=== PATIENT | female | born 1960 | race Caucasian/White ===

== ENCOUNTER → 2020-09-15 09:52 | Outpatient (REF) | payer MEDICAID, SELFPAY ==
--- NOTE | 2020-09-15 10:00 | ECG_ITS ---
Test Reason : CP Blood Pressure : / mmHG Vent. Rate : 062 BPM Atrial Rate : 062 BPM P-R Int : 150 ms QRS Dur : 086 ms QT Int : 402 ms P-R-T Axes : 029 032 035 degrees QTc Int : 408 ms Normal sinus rhythm Normal ECG No previous ECGs available Referred By: Agapito Crane Electronically Signed By:NIC RHODES MD
--- NOTE | 2020-09-15 10:38 | XR_ITS ---
EXAMINATION: XR CHEST CLINICAL INFORMATION: Atypical chest pain COMPARISON: Previous chest x-ray December 2013 TECHNIQUE: 2 views of the chest were obtained. FINDINGS: The cardiac and mediastinal contours are normal. The lungs are clear. There is no pleural effusion or pneumothorax. There are degenerative changes of the spine. XR/XR chest 2V IMPRESSION: No evidence for acute disease in the chest.
== END ==
LOC: HO.CARD 09:52
PROVIDERS: PCP Internal Medicine Medical Oncology; Visit Provider Internal Medicine Medical Oncology
DX: R07.89 Other chest pain (principal)
CPT/HCPCS: 71046; 93005

== ENCOUNTER → 2020-10-04 08:12 | Outpatient (REF) | payer MEDICAID, SELFPAY ==
--- NOTE | 2020-10-04 08:30 | CA_ITS ---
Acquisition Time: 2020-10-04 08:35:07 Total Exercise Time: 00:06:57 Test Indications: Chest Pain Medications: Protocol: LEÓN Max HR: 144 BPM 88% of Pred: 162 BPM Max BP: 188/074 mmHG Max Work Load: 8.4 METS Exercise stress test with exercise 6 min 57 sec of León protocol, with mild sob, with 2/10 left chest pressure at baseline which did not change with exercise or recovery, without arrythmia, with normotensive response to exercise, without EKG changes meeting criteria for ischemia. Test reviewed with Dr Botello. Referred By: Agapito Crane Overread By: DAISY WU
== END ==
LOC: HO.CARD 08:12
PROVIDERS: Visit Provider Internal Medicine Medical Oncology
DX: R07.89 Other chest pain (principal)
CPT/HCPCS: 93017

== ENCOUNTER 2021-01-17 08:45 | Outpatient (REF) | payer OTHER, SELFPAY ==
--- NOTE | ~2021-01-17 | MM_ITS ---
EXAMINATION: MM SCREENING DIGITAL BREAST TOMOSYNTHESIS, BILATERAL CLINICAL INFORMATION: Screening. Asymptomatic. The lifetime risk of breast cancer based on the Tyrer-Cuzick Model is 8.7%. COMPARISON: Mammography: 01/05/2015 and studies dating back to 08/12/2012. TECHNIQUE: Digital breast tomosynthesis is performed in both the craniocaudal and mediolateral oblique views along with computer-aided detection (CAD). Synthesized 2D images are generated from the tomosynthesis. FINDINGS: There are scattered areas of fibroglandular density (ACR BI-RADS breast composition Category b). Within the deep central aspect of the right breast, there is a circumscribed 1.1 x 0.5 cm lesion approximately 7 cm from the nipple with question possible fatty cleft which may represent a lymph node but was not definitely seen on previous studies. No suspicious grouping of microcalcifications identified. Within the inferior anterior aspect of the left breast, there is again noted to be a circumscribed density which previously had been shown to represent a cyst. About the deep superior aspect of the left breast, there is a 1.4 x 1.1 cm density which appears more prominent than on prior study and may represent a lymph node. Spot compression films of both breasts with possible ultrasound is recommended. MM/MM tomosynthesis screening BI IMPRESSION: Bilateral breast densities for further evaluation. ASSESSMENT: BI-RADS 0: Incomplete - Need Additional Imaging Evaluation RECOMMENDATION: 1. Additional views of the bilateral breasts. 2. Targeted ultrasound if warranted after review of the additional views. 3. Radiology department staff will contact the patient for additional imaging. This patient's information was entered into a reminder system with a target due date for their next mammogram.
== END 2021-01-17 08:46 | disposition home or self-care (01) ==
LOC: HO.MAMMO 08:45
PROVIDERS: Visit Provider Internal Medicine Medical Oncology
DX: Z12.31 Encounter for screening mammogram for malignant neoplasm of breast (principal)
CPT/HCPCS: 77063; 77067

== ENCOUNTER 2021-01-26 12:56 | Outpatient (REF) | payer OTHER, SELFPAY ==
--- NOTE | ~2021-01-26 | US_ITS ---
EXAMINATION: US DIAGNOSTIC ULTRASOUND BREAST, RIGHT CLINICAL INFORMATION: Density. COMPARISON: Mammography of same day and January 26, 2021 with studies dating back to August 12, 2012. TECHNIQUE: Ultrasound of the breast is performed with real-time guevara scale imaging and color Doppler. FINDINGS: Targeted right breast ultrasound did not demonstrate any abnormal cystic or solid mass. No region of abnormal distal sound shadowing was appreciated. Targeted left breast ultrasound demonstrated at the 1:00 position approximately 6 cm from nipple a 9 x 2 x 8 mm simple cyst but would not correlate to the mammographic finding. No definite lymph node is identified in region of density deep or and superior to this. Results are discussed with the patient at time of visit. US/US breast RT limited IMPRESSION: Density in the left axilla appears to represent a lymph node. Right breast density with benign appearance with no ultrasound abnormality identified. Patient states that she has had mammograms performed elsewhere in the interval between her last study done at [facility] and now. We'll attempt to obtain these studies to see if there is stability or not ASSESSMENT: BI-RADS 3: Probably Benign right breast BI-RADS 2 (probably benign) left breast RECOMMENDATION: Diagnostic mammography in 6 months. Right breast
--- NOTE | ~2021-01-26 | MM_ITS ---
EXAMINATION: MM DIAGNOSTIC DIGITAL BREAST TOMOSYNTHESIS, BILATERAL Bilateral targeted breast ultrasound CLINICAL INFORMATION: Bilateral breast densities COMPARISON: Mammography: 01/17/2021nd studies dating back to 08/18/2012. TECHNIQUE: Digital breast tomosynthesis is performed. 2D images are generated from the tomosynthesis. The following views are obtained: Spot compression views in craniocaudal and mediolateral oblique projection. Bilateral targeted breast ultrasound. FINDINGS: There are scattered areas of fibroglandular density (ACR BI-RADS breast composition Category b). Spot compression views of the right breast again demonstrate a 1.0 x 0.6 cm well-circumscribed density lying approximately 6.5 cm from the nipple. This lesion does not efface. No spiculation or calcifications within this are identified. Spot compression views of the left breast again demonstrate a circumscribed density about the deep upper outer aspect approximately 9 cm from the nipple measuring approximately 1.2 x 0.8 cm in size but with what appears to be fatty cleft and representing an intramammary lymph node. Targeted right breast ultrasound did not demonstrate any abnormal cystic or solid mass. No region of abnormal distal sound shadowing was appreciated. Targeted left breast ultrasound demonstrated at the1o'clock position approximately 6 cm from nipple a 9 x 2 x 8 mm simple cyst but would not correlate to the mammographic finding. No definite lymph node is identified in region of the soft tissue density deeper and superior to this. Results are discussed with the patient at time of visit. MM/MM tomosynthesis added view BI IMPRESSION: Density in the left axilla appears to represent a lymph node. Right breast density with benign appearance with no ultrasound abnormality identified. Patient states that she has had mammograms performed elsewhere in the interval between her last study done at [facility] and now. We will attempt to obtain these studies to see if there is stability or not. ASSESSMENT: BI-RADS 3: Probably Benign right breast BI-RADS 2 (Probably Benign) left breast RECOMMENDATION: Diagnostic mammography in 6 months. Right breast This patient's information was entered into a reminder system with a target due date for their next mammogram.
--- NOTE | ~2021-01-26 | US_ITS ---
EXAMINATION: US DIAGNOSTIC ULTRASOUND BREAST, LEFT CLINICAL INFORMATION: Left breast density superiorly. COMPARISON: Mammography of same day and January 17, 2021. TECHNIQUE: Ultrasound of the breast is performed with real-time guevara scale imaging and color Doppler. FINDINGS: Targeted left breast ultrasound demonstrated at the 1:00 position approximately 6 cm from nipple a 9 x 2 x 8 mm simple cyst but would not correlate to the mammographic finding. No definite lymph node is identified in region of density deep or and superior to this. Results are discussed with the patient at time of visit. US/US breast LT limited IMPRESSION: Density in the left axilla appears to represent a lymph node. Right breast density with benign appearance with no ultrasound abnormality identified. Patient states that she has had mammograms performed elsewhere in the interval between her last study done at [facility] and now. We'll attempt to obtain these studies to see if there is stability or not ASSESSMENT: BI-RADS 3: Probably Benign right breast BI-RADS 2 (probably benign) left breast RECOMMENDATION: Diagnostic mammography in 6 months. Right breast
== END 2021-01-26 12:57 | disposition home or self-care (01) ==
LOC: HO.MAMMO 12:56
PROVIDERS: Visit Provider Internal Medicine Medical Oncology
DX: R92.2 Inconclusive mammogram (principal)
CPT/HCPCS: 76642; 77062; 77066

== ENCOUNTER 2021-09-12 13:01 | Outpatient (REF) | payer MEDICAID, SELFPAY ==
--- NOTE | ~2021-09-12 | MM_ITS ---
EXAMINATION: MM DIAGNOSTIC DIGITAL BREAST TOMOSYNTHESIS, RIGHT CLINICAL INFORMATION: Short interval six-month follow-up probable benign nodule central posterior right breast, possibly intramammary node. No known family history breast cancer. TC score 8%. COMPARISON: Mammography: 01/26/2021, 01/17/2021 (BI-RADS 0), outside mammography 01/15/2015, 08/12/2012 ([facility]). Ultrasound right breast 01/26/2021. TECHNIQUE: Digital breast tomosynthesis is performed in both the craniocaudal and mediolateral oblique views along with computer-aided detection (CAD). Synthesized 2D images are generated from the tomosynthesis. FINDINGS: There are scattered areas of fibroglandular density (ACR BI-RADS breast composition Category b). Small oval nodule posterior central right breast is again better appreciated on CC view and appears stable to slightly decreased from prior recent imaging. In retrospect, finding is likely present on right CC view from 2011. Remainder of right breast is unremarkable. No developing density or architectural abnormality. No abnormal calcifications. Right breast will be reassessed with diagnostic exam at time of annual bilateral mammography, due in 6 months. Results are provided to the patient at time of visit by the technologist. MM/MM tomosynthesis diagnostic RT IMPRESSION: Focal nodular asymmetry posterior central right breast stable to decreased, possibly present on remote outside exam 2011. ASSESSMENT: BI-RADS 3: Probably Benign RECOMMENDATION: Diagnostic mammography at time of annual bilateral mammography, due in 6 months. This patient's information was entered into a reminder system with a target due date for their next mammogram.
== END 2021-09-12 13:02 | disposition home or self-care (01) ==
LOC: HO.MAMMO 13:01
PROVIDERS: Visit Provider Internal Medicine Medical Oncology
DX: R92.2 Inconclusive mammogram (principal)
CPT/HCPCS: 77061; 77065

== ENCOUNTER 2022-02-12 11:09 | Outpatient (REF) | payer MEDICAID, SELFPAY ==
[2022-02-12 13:46] LABS: MANUAL DIFF FLAG NO
[2022-02-12 13:50] LABS: Basophils Absolute Auto 0.1 X10*3/uL (0.0-0.2); Basophils Percent Auto 0.7 % (0-2); Eosinophils Absolute Auto 0.2 X10*3/uL (0.0-0.4); Eosinophils Percent Auto 3.6 % (0-4); Hematocrit 41.7 % (37.0-47.0); Hemoglobin 13.6 g/dl (12.0-16.0); Imm Gran Abs Auto 0.03 X10*3/uL (0.00-0.03); Imm Gran Pct Auto 0.4 % (0.0-0.4); Lymphocytes Absolute Auto 2.5 X10*3/uL (1.2-4.9); Lymphocytes Percent Auto 37.5 % (20-40); Mean Corpuscular HGB Conc 32.6 g/dl (31.0-35.0); Mean Corpuscular Hemoglobin 29.1 pg (27.0-33.0); Mean Corpuscular Volume 89.3 fL (80.0-98.0); Monocytes Absolute Auto 0.5 X10*3/uL (0.1-1.2); Monocytes Percent Auto 7.8 % (2-11); Neutrophils Absolute Auto 3.4 x10*3/uL (2.0-8.3); Platelet Count 283 X10*3/uL (160-400); Red Blood Count 4.67 X10*6/uL (4.20-5.50); Red Cell Distribution Width 13.8 % (11.0-16.0); White Blood Count 6.7 X10*3/uL (4.8-10.8)
[2022-02-12 14:14] LABS: Alanine Aminotransferase 31 U/L (0-31); Albumin Level 4.4 g/dL (3.5-5.0); Alkaline Phosphatase 83 U/L (39-117); Anion Gap 12 (12-20); Aspartate Amino Transferase 19 U/L (5-31); Bilirubin Total 0.4 mg/dL (0.0-1.0); Blood Urea Nitrogen 19 mg/dL (9-16); Calcium 9.4 mg/dL (8.4-10.2); Carbon Dioxide 27 mmol/L (22-29); Chloride 104 mmol/L (96-108); Cholesterol 285 mg/dL; Estimated Glomerular Filt Rate > 60; Glucose Fasting 102 mg/dL (60-99); HDL Cholesterol 50 mg/dL; LDL Cholesterol Calculated 216 mg/dl; Potassium 4.9 mmol/L (3.3-5.1); Sodium 138 mmol/L (135-145); Total Protein 6.8 g/dL (6.5-8.0); Triglycerides 97 mg/dL
== END 2022-02-12 11:10 | disposition home or self-care (01) ==
LOC: HO.10HDL 11:09
PROVIDERS: Visit Provider Internal Medicine Medical Oncology
DX: E66.9 Obesity, unspecified (principal); E78.5 Hyperlipidemia, unspecified; R07.89 Other chest pain
CPT/HCPCS: 36415; 80053; 80061; 85025

== ENCOUNTER 2022-03-13 14:05 | Outpatient (REF) | payer MEDICAID, SELFPAY ==
--- NOTE | ~2022-03-13 | MM_ITS ---
EXAMINATION: MM DIAGNOSTIC DIGITAL BREAST TOMOSYNTHESIS, BILATERAL CLINICAL INFORMATION: Due for yearly. Follow-up probable benign nodule posterior central right breast, possibly intramammary node. Family history breast cancer, mother. TC score 19%. COMPARISON: Mammography: 09/12/2021, 01/26/2021, 01/17/2021 (BI-RADS 0); outside mammography 01/05/2015, 08/18/2012, 08/12/2012 ([facility]). Ultrasound bilateral breasts 01/26/2021. TECHNIQUE: Digital breast tomosynthesis is performed in both the craniocaudal and mediolateral oblique views along with computer-aided detection (CAD). Synthesized 2D images are generated from the tomosynthesis. FINDINGS: There are scattered areas of fibroglandular density (ACR BI-RADS breast composition Category b). Smooth oval nodularity posterior central right breast with is stable from prior diagnostic exams and will be reassessed again at next bilateral annual mammography. The remainder of the breasts show fibroglandular parenchymal pattern similar to prior exams. Nodularity anterior lower inner left breast is decreased since 2012. No developing density or interval architectural abnormality or abnormal calcifications. The axilla and skin contours are unremarkable. Results are provided to the patient at time of visit by the technologist. MM/MM tomosynthesis diagnostic BI IMPRESSION: -Benign-appearing focal nodular asymmetry posterior central right breast stable. -No significant changes bilateral breasts. ASSESSMENT: BI-RADS 3: Probably Benign RECOMMENDATION: Diagnostic mammography at time of next annual exam, due in 12 months. This patient's information was entered into a reminder system with a target due date for their next mammogram.
== END 2022-03-13 14:06 | disposition home or self-care (01) ==
LOC: HO.MAMMO 14:05
PROVIDERS: Visit Provider Internal Medicine Medical Oncology
DX: R92.2 Inconclusive mammogram (principal)
CPT/HCPCS: 77062; 77066

== ENCOUNTER 2022-09-13 08:56 | Outpatient (REF) | payer MEDICAID, SELFPAY ==
[2022-09-13 10:12] LABS: MANUAL DIFF FLAG NO
[2022-09-13 10:22] LABS: Basophils Absolute Auto 0.1 X10*3/uL (0.0-0.2); Basophils Percent Auto 0.7 % (0-2); Eosinophils Absolute Auto 0.3 X10*3/uL (0.0-0.4); Hemoglobin 13.5 g/dl (12.0-16.0); Imm Gran Abs Auto 0.03 X10*3/uL (0.00-0.03); Imm Gran Pct Auto 0.4 % (0.0-0.4); Lymphocytes Absolute Auto 2.6 X10*3/uL (1.2-4.9); Lymphocytes Percent Auto 31.5 % (20-40); Mean Corpuscular HGB Conc 32.1 g/dl (31.0-35.0); Mean Corpuscular Volume 87.1 fL (80.0-98.0); Mean Platelet Volume 10.3 fL (9.4-12.3); Monocytes Absolute Auto 0.7 X10*3/uL (0.1-1.2); Neutrophils Absolute Auto 4.6 x10*3/uL (2.0-8.3); Neutrophils Percent Auto 55.4 % (45-73); Platelet Count 332 X10*3/uL (160-400); Red Blood Count 4.82 X10*6/uL (4.20-5.50); Red Cell Distribution Width 13.6 % (11.0-16.0); White Blood Count 8.3 X10*3/uL (4.8-10.8)
[2022-09-13 11:06] LABS: Alanine Aminotransferase 59 U/L (0-31); Albumin Level 4.3 g/dL (3.5-5.0); Alkaline Phosphatase 91 U/L (39-117); Anion Gap 13 (12-20); Aspartate Amino Transferase 30 U/L (5-31); Bilirubin Total 0.4 mg/dL (0.0-1.0); Blood Urea Nitrogen 16 mg/dL (9-16); Calcium 9.4 mg/dL (8.4-10.2); Carbon Dioxide 27 mmol/L (22-29); Chloride 105 mmol/L (96-108); Cholesterol 318 mg/dL; Estimated Glomerular Filt Rate 56; Glucose Fasting 98 mg/dL (60-99); HDL Cholesterol 60 mg/dL; LDL Cholesterol Calculated 237 mg/dl; Potassium 4.5 mmol/L (3.3-5.1); Sodium 140 mmol/L (135-145); Total Protein 6.6 g/dL (6.5-8.0); Triglycerides 105 mg/dL
[2022-09-13 11:24] LABS: Free T4 (Free Thyroxine) 0.87 ng/dL (0.71-1.85); Thyroid Stimulating Hormone 1.67 uIU/mL (0.32-4.0)
== END 2022-09-13 08:57 | disposition home or self-care (01) ==
LOC: HO.10HDL 08:56
PROVIDERS: Visit Provider Internal Medicine Medical Oncology
DX: E78.5 Hyperlipidemia, unspecified (principal); E66.3 Overweight
CPT/HCPCS: 36415; 80053; 80061; 84439; 84443; 85025

== ENCOUNTER 2023-03-11 08:01 | Outpatient (REF) | payer MEDICAID, SELFPAY ==
[2023-03-11 09:10] LABS: Cholesterol 254 mg/dL; HDL Cholesterol 56 mg/dL; LDL Cholesterol Calculated 179 mg/dl; Triglycerides 97 mg/dL
== END 2023-03-11 08:02 | disposition home or self-care (01) ==
LOC: HO.LAB 08:01
PROVIDERS: PCP Internal Medicine Medical Oncology; Visit Provider Internal Medicine Medical Oncology
DX: E78.5 Hyperlipidemia, unspecified (principal)
CPT/HCPCS: 36415; 80061

== ENCOUNTER 2023-04-29 12:54 | Outpatient (REF) | payer MEDICAID, SELFPAY ==
--- NOTE | ~2023-04-29 | MM_ITS ---
EXAMINATION: MM DIAGNOSTIC DIGITAL BREAST TOMOSYNTHESIS, BILATERAL CLINICAL INFORMATION: Six-month follow-up right breast oval density centrally, likely lymph node. The lifetime risk of breast cancer based on the Tyrer-Cuzick Model is 19%. COMPARISON: Mammography: 09/13/2021, 09/12/2021, 01/26/2021, 01/17/2021. TECHNIQUE: Digital breast tomosynthesis is performed in both the craniocaudal and mediolateral oblique views along with computer-aided detection (CAD). Synthesized 2D images are generated from the tomosynthesis. Minimal addition, a 3-D left XCCL full-field digital view was performed. FINDINGS: There are scattered areas of fibroglandular density (ACR BI-RADS breast composition Category b). There is a stable and unchanged small oval probable intramammary lymph node in the central slightly inferior right breast, stable from prior exams and benign. In addition, there are benign nodules in the left breast upper outer quadrant, and lower inner quadrant anterior one third. There are no suspicious masses, suspicious grouped calcifications, or areas of architectural distortion. The parenchymal pattern is stable from prior exams. MM/MM tomosynthesis diagnostic BI IMPRESSION: Stable benign findings both breasts. No findings suspicious for malignancy. Recommend the patient return to routine annual screening. ASSESSMENT: BI-RADS BI-RADS 2 - Benign Findings RECOMMENDATION: 1 year F/U Results were provided to the patient at time of visit by the technologist. This patient's information was entered into a reminder system with a target due date for their next mammogram.
== END 2023-04-29 12:55 | disposition home or self-care (01) ==
LOC: HO.MAMMO 12:54
PROVIDERS: PCP Internal Medicine Medical Oncology; Visit Provider Internal Medicine Medical Oncology
DX: R92.2 Inconclusive mammogram (principal)
CPT/HCPCS: 77062; 77066

== ENCOUNTER → 2023-04-29 13:00 | Outpatient (BNV) | payer MEDICAID, SELFPAY | PROVIDERS: PCP Internal Medicine Medical Oncology; Visit Provider Radiology Diagnostic Radiology | DX: R92.2 Inconclusive mammogram (principal) | CPT/HCPCS: 77062; 77066 ==

== ENCOUNTER 2023-10-07 08:39 | Outpatient (REF) | payer MEDICAID, SELFPAY ==
[2023-10-07 09:07] LABS: MANUAL DIFF FLAG NO
[2023-10-07 10:31] LABS: Basophils Absolute Auto 0.1 X10*3/uL (0.0-0.2); Basophils Percent Auto 1.1 % (0-2); Eosinophils Absolute Auto 0.3 X10*3/uL (0.0-0.4); Eosinophils Percent Auto 4.5 % (0-4); Hematocrit 39.8 % (37.0-47.0); Imm Gran Abs Auto 0.02 X10*3/uL (0.00-0.03); Imm Gran Pct Auto 0.3 % (0.0-0.4); Lymphocytes Absolute Auto 2.6 X10*3/uL (1.2-4.9); Lymphocytes Percent Auto 33.9 % (20-40); Mean Corpuscular HGB Conc 32.7 g/dl (31.0-35.0); Mean Corpuscular Hemoglobin 27.7 pg (27.0-33.0); Mean Corpuscular Volume 84.9 fL (80.0-98.0); Mean Platelet Volume 10.3 fL (9.4-12.3); Monocytes Absolute Auto 0.7 X10*3/uL (0.1-1.2); Monocytes Percent Auto 9.5 % (2-11); Neutrophils Absolute Auto 3.8 x10*3/uL (2.0-8.3); Neutrophils Percent Auto 50.7 % (45-73); Platelet Count 317 X10*3/uL (160-400); Red Blood Count 4.69 X10*6/uL (4.20-5.50); Red Cell Distribution Width 13.7 % (11.0-16.0); White Blood Count 7.6 X10*3/uL (4.8-10.8)
[2023-10-07 11:15] LABS: Alanine Aminotransferase 43 U/L (0-31); Albumin Level 4.2 g/dL (3.5-5.0); Alkaline Phosphatase 108 U/L (39-117); Anion Gap 15 (12-20); Aspartate Amino Transferase 22 U/L (5-31); Bilirubin Total 0.3 mg/dL (0.0-1.0); Blood Urea Nitrogen 21 mg/dL (9-16); Calcium 9.2 mg/dL (8.4-10.2); Carbon Dioxide 25 mmol/L (22-29); Chloride 107 mmol/L (96-108); Cholesterol 244 mg/dL (<200); Estimated Glomerular Filt Rate > 60; Glucose Fasting 98 mg/dL (60-99); HDL Cholesterol 56 mg/dL (>40); LDL Cholesterol Calculated 173 mg/dL (<100); Potassium 4.8 mmol/L (3.3-5.1); Sodium 142 mmol/L (135-145); Total Protein 6.8 g/dL (6.5-8.0); Triglycerides 78 mg/dL (<150)
== END 2023-10-07 08:40 | disposition home or self-care (01) ==
LOC: HO.LAB 08:39
PROVIDERS: PCP Internal Medicine Medical Oncology; Visit Provider Internal Medicine Medical Oncology
DX: E66.9 Obesity, unspecified (principal); E78.5 Hyperlipidemia, unspecified
CPT/HCPCS: 36415; 80053; 80061; 85025

== ENCOUNTER → 2023-11-04 07:59 | Outpatient (REF) | payer MEDICAID, SELFPAY ==
--- NOTE | 2023-11-04 08:04 | CA_ITS ---
Acquisition Time: 2023-11-04 08:36:03 Total Exercise Time: 00:06:36 Test Indications: CP Medications: SEE H Protocol: LEÓN Max HR: 150 BPM 94% of Pred: 159 BPM Max BP: 138/100 mmHG Max Work Load: 7.9 METS Exercise stress test exercise 6 min 36 sec of León protocol achieving 93% MPHR, with mild SOB, no chest discomfort, without arrhythmais, with normotensive resposne to exercise, without EKG changes. Test reviewed with Dr. Pope. Referred By: Agapito Crane Overread By: Maeve Landry
== END ==
LOC: HO.CARD 07:59
PROVIDERS: PCP Internal Medicine Medical Oncology; Visit Provider Internal Medicine Medical Oncology
DX: R07.89 Other chest pain (principal)
CPT/HCPCS: 93017

== ENCOUNTER 2024-03-03 10:04 | Outpatient (REF) | payer MEDICAID, SELFPAY ==
[2024-03-03 11:10] LABS: MANUAL DIFF FLAG NO
[2024-03-03 11:31] LABS: Alanine Aminotransferase 36 U/L (0-31); Albumin Level 4.5 g/dL (3.5-5.0); Alkaline Phosphatase 102 U/L (39-117); Anion Gap 11 (12-20); Aspartate Amino Transferase 23 U/L (5-31); Bilirubin Total 0.5 mg/dL (0.0-1.0); Blood Urea Nitrogen 20 mg/dL (9-16); Calcium 9.4 mg/dL (8.4-10.2); Carbon Dioxide 27 mmol/L (22-29); Chloride 108 mmol/L (96-108); Cholesterol 269 mg/dL (<200); Estimated Glomerular Filt Rate > 60; Glucose Fasting 108 mg/dL (60-99); HDL Cholesterol 56 mg/dL (>40); LDL Cholesterol Calculated 198 mg/dL (<100); Potassium 4.3 mmol/L (3.3-5.1); Sodium 142 mmol/L (135-145); Total Protein 7.1 g/dL (6.5-8.0); Triglycerides 75 mg/dL (<150)
[2024-03-03 11:34] LABS: Basophils Absolute Auto 0.1 X10*3/uL (0.0-0.2); Basophils Percent Auto 1.1 % (0-2); Eosinophils Absolute Auto 0.3 X10*3/uL (0.0-0.4); Eosinophils Percent Auto 3.9 % (0-4); Hematocrit 41.6 % (37.0-47.0); Hemoglobin 13.4 g/dl (12.0-16.0); Imm Gran Abs Auto 0.02 X10*3/uL (0.00-0.03); Imm Gran Pct Auto 0.2 % (0.0-0.4); Lymphocytes Absolute Auto 2.7 X10*3/uL (1.2-4.9); Lymphocytes Percent Auto 32.1 % (20-40); Mean Corpuscular HGB Conc 32.2 g/dl (31.0-35.0); Mean Corpuscular Hemoglobin 27.9 pg (27.0-33.0); Mean Corpuscular Volume 86.5 fL (80.0-98.0); Mean Platelet Volume 10.2 fL (9.4-12.3); Monocytes Absolute Auto 0.8 X10*3/uL (0.1-1.2); Neutrophils Absolute Auto 4.5 x10*3/uL (2.0-8.3); Neutrophils Percent Auto 53.7 % (45-73); Platelet Count 327 X10*3/uL (160-400); Red Blood Count 4.81 X10*6/uL (4.20-5.50); Red Cell Distribution Width 13.9 % (11.0-16.0); White Blood Count 8.4 X10*3/uL (4.8-10.8)
[2024-03-03 11:51] LABS: Vitamin D 25-OH Total 36.6 ng/mL (>30)
== END 2024-03-03 10:05 | disposition home or self-care (01) ==
LOC: HO.10HDL 10:04
PROVIDERS: Visit Provider Internal Medicine Medical Oncology
DX: Z00.00 Encounter for general adult medical examination without abnormal findings (principal); E66.9 Obesity, unspecified; E78.5 Hyperlipidemia, unspecified; E55.9 Vitamin D deficiency, unspecified
CPT/HCPCS: 36415; 80053; 80061; 82306; 85025

== ENCOUNTER 2024-05-05 09:56 | Outpatient (REF) | payer MEDICAID, SELFPAY ==
--- NOTE | ~2024-05-05 | MM_ITS ---
EXAMINATION: MM SCREENING DIGITAL BREAST TOMOSYNTHESIS, BILATERAL CLINICAL INFORMATION: Screening. Asymptomatic. COMPARISON: Mammography: Comparison is made with available priors TECHNIQUE: Digital breast mammography with tomosynthesis is performed in both the craniocaudal and mediolateral oblique views along with computer-aided detection (CAD). FINDINGS: There are scattered areas of fibroglandular density (ACR BI-RADS breast composition Category b). There are no significant masses, abnormal calcifications, or other abnormalities. MM/MM tomosynthesis screening BI IMPRESSION: No mammographic evidence of malignancy. ASSESSMENT: BI-RADS BI-RADS 1 - Negative RECOMMENDATION: Routine annual mammography screening. 1 year F/U This examination should not preclude the clinical evaluation of a suspicious palpable abnormality. This patient's information was entered into a reminder system with a target due date for their next mammogram. Electronically signed by: Janae Navarro DO 05/23/2024 09:32 AM EDT
== END 2024-05-05 09:57 | disposition home or self-care (01) ==
LOC: HO.MAMMO 09:56
PROVIDERS: PCP Internal Medicine Medical Oncology; Visit Provider Internal Medicine Medical Oncology
DX: Z12.31 Encounter for screening mammogram for malignant neoplasm of breast (principal)
CPT/HCPCS: 77063; 77067

== ENCOUNTER → 2024-05-05 10:00 | Outpatient (BNV) | payer MEDICAID, SELFPAY | PROVIDERS: PCP Internal Medicine Medical Oncology; Visit Provider Internal Medicine | DX: Z12.31 Encounter for screening mammogram for malignant neoplasm of breast (principal) | CPT/HCPCS: 77063; 77067 ==

== ENCOUNTER → 2025-02-15 10:54 | Outpatient (REF) | payer MEDICAID, SELFPAY ==
--- NOTE | 2025-02-15 10:58 | HM_ITS ---
Conclusion: 1. Patient was monitored for total period of 6 days and 20 hours 2. Baseline was normal sinus rhythm with average heart of 69 beats per minute 3. Rare PACs and PVCs noted 4. No significant pauses noted 5. Nine runs of SVT noted, longest lasting 24 beats with the fastest of 131 beats per minute consistent with atrial tachycardia 6. Patient marked the counter 6 times with symptoms of dizziness 5 times correlating with sinus rhythm and 1 of the symptoms of chest pain correlating with isolated PVC MTDD
--- OUTSIDE RECORDS SUMMARY | 2025-02-15 12:25 | XMS_ITS ---
Author Organization Agapito Crane III, MD Address [address] [place] [address] Care Team Providers Care Traveling Electrician Name Role Phone Agapito Crane Primary Care Provider [phone] Allergies Allergen (clinical drug ingredient) Drug/Non Drug [...] Problem Status W/U Status Risk Notes Problem [id number] Essential hypertension (I10) Active confirmed Her blood [...] Date Provider Diagnosis Agapito Crane III, MD [address] [place] [address] [address] [facility] [address] 12/28/2024 Agapito Crane Obesity (BMI 30.0-34 .9) [...] Weeks, Reason: ov no tests Provider Name:Agapito Morganrne, 02/28/2025 10:00:00 AM, [address] [place] [address] , [place] [address], [place], [address], Progress Notes * DIONI OHDOB:1960 (64 yo F)Acc No.[id number]:12/28/2024 Progress Notes Patient:?DIONI [place] Provider:?Agapito Crane MD :1960???Age:64 Y???Sex:Female D ate:12/28/2024 Address:[address] [place] [address] , [facility] Subjective: * Chief Complaints: * ???DepressionSleep apneaObes ityTobacco dependenceHyperlipidemia * HPI: ???COVID-19 Screening:?She is on a weight loss regimen that includes zap pound 5 mg weekly by injection within the boundaries that she sets forming.She has lost 6 pounds since her last visit.? She is quite happy with the medication and has had no side effects.? She has an elevated lipid profile and has been prescribed today.? Atorvastatin with good results.? However, today, she told me she has stopped taking that medication because she does not desire to take any medication.? She declined to resume it.? After a long discussion.? Also, she is not taking her amlodipine for high blood pressure.? She said that she does not want to take any medication.? She did not agree to resume them amlodipine cloud services architect a substitute for either of these 2 medications which she has stopped.? She will continue to come to the office once a month to be weight and have her vital signs measured.? I will try to give her statin IK care. ?Questions?Have you had any new onset fever, chills, cough, congestion, sore throat, shortness of breath, muscle aches??No * ROS:?General/Constitutional:?pain?only normal aches and pains.?Chills?denies.?Fatigue?admits.?Fever?denies.?ENT:?Decreased hearing?denies.?Respiratory:?Cough?non-productive.?Cardiovascular:?Chest pain with exertion?denies.?Dyspnea on exertion?denies.?Shortness of breath?denies.?Gastrointestinal:?Constipation?occasional.?Decreased appetite?denies.?Diarrhea?denies.?Heartburn?occasional.?Nausea?denies.?Rectal bleeding?denies.?Vomiting?denies.?Hematology:?bruising?denies.?petechiae?denies.?Swollen glands?none have been noted.?Genitourinary:?Frequent urination?denies.?Musculoskeletal:?Muscle aches?denies.?Painful joints?denies.?Sciatica?denies.?Weakness?denies.?Skin:?Itching?denies.?Rash?denies.?Skin lesion(s)?denies.?Neurologic:?Difficulty speaking?denies.?Dizziness?denies.?Headache?denies.?Low back pain?denies.?Psychiatric:?Depressed mood?denies.? * Medical History:? * Surgical History:?tubal liga tion 04/1986tonsillectomy No history * Hospitalization/Major Diagno stic Procedure:?No history * Family History:?Father: dece ased 82 yrs, cad, gastric cancer, diagnosed with Cancer.?Mother: 45 yrs, lung cancer, diagnosed with Cancer.?Siblings: alive.?Maternal Grand Mother: alive, diagnosed with CVD, DM, HTN.?1 brother(s) - healthy. .? A maternal grandmother was hypertensive with coronary artery disease and type 2 diabetes mellitus. Her brother is healthy and well. She has no children. She is not aware of any family history of substance use disorder, addiction, or mental illness. 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 She works 80 hours per week. She is with no children. She lives in [place]. {'Smoking': 'Yes'} Smoking - Reduced to 3 cigarettes a day. * Medications:?TakingclonazePA M 0.5 MG Tablet TAKE 1 TABLET BY [...] reviewed and reconciled with the patient * Allergies:?No Known Drug All ergyno[Allergies Verified] Objective: * Vitals:?Ht: 64, Wt: 185, BMI :31.75, BP: 145/89, HR: 74, Temp: 98.1, Ht-cm: 162.56, Wt-k.91. * Examination: ???General Examination: ?GENERAL APPEARANCE:?pleasant, well nourished, well developed, in no acute distress, calm and relaxed, obese, woman.?HEAD:?atraumatic, normocephalic.?EYES:?eomi, perrla, anicteric, conjugate.?EARS:?normal.?NOSE:?septum intact.?ORAL CAVITY:?normal, unremarkable.?NECK/THYROID:?no jugular venous distention, no carotid bruit, thyroid normal.?LYMPH NODES:?no enlarged lymph nodes,spleen normal.?SKIN:?no suspicious lesions, anicteric.?HEART:?no clicks, gallops, murmurs, or rubs, regular rhythm, S1, S2 normal, no s3, or vascular bruits.?LUNGS:?, diminished breath sounds throughout, good air movement.?BREASTS:??no masses palpable bilaterally.?ABDOMEN:?bowel sounds normal, no ascites, no organomegaly, no mass, centripital obesity.?RECTAL EXAM:?not examined.?MUSCULOSKELETAL:?extremities unremarkable, no clubbing, cyanosis or edema.?PERIPHERAL PULSES:?normal.?NEUROLOGIC:?alert and oriented, cranial nerves 2-12 grossly intact, deep tendon reflexes 2+ symmetrical, motor strength normal upper and lower extremities, sensory exam intact.?PSYCH:?alert, oriented, anxious appearing.? Assessment: * Assessment: 1.?Obesity (BMI 30.0-34.9) - E66.9 (Primary)???Notes :Her medication was kept at the same dose. She has lost 6 pounds. She is having no side effects. She will return in one month.???2.?Depression, unspecified depression type - F32.9???Notes :She continues on the sertraline. She has had no side effects.???3.?Sleep apnea, unspecified type - G47.30???Notes :She denies any daytime somnolence and says she is happy with her current state of affairs.???4.?Tobacco dependence - F17.200???Notes :We have reviewed all of the health consequences of continued smoking. I have recommended smoke [place] and the smoking cessation programs at the local hospitals. She will consider this. I have made her aware of the utility of nicotine patches and Chantix. She will consider these as well.???5.?Hyperlipidemia, unspecified hyperlipidemia type - E78.5???Notes :She has stopped taking her a atorvastatin stating that she does not wish to take medication.? I discussed this with her at length and she persisted in this decision.???6.?Essential hypertension - I10???Notes :Her blood pressure was elevated today.? She has not been taking the amlodipine.? She declined to take any? blood pressure medication today.? She says she does not wish to take medication.? She persisted in this decision after a long discussion with me today about the pros and cons of treating hypertension.? It is hoped that weight loss will bring the pressure down. We discussed sodium restriction today.? We discussed lifestyle modifications today.??? Plan: * Treatment: 2.?Others? Continue valACYclovir HCl Tablet, 500 MG, TAKE 1 TABLET BY MOUTH EVERY DAY FOR 5 DAYS;?Continue Omeprazole Capsule Delayed Release, 20 MG, TAKE 1 CAPSULE BY MOUTH EVERY DAY;?Continue Atorvastatin Calcium Tablet, 10 MG, 1 tablet, Orally, Once a day;?Continue Ondansetron Tablet Disintegrating, 8 MG, 1 tablet on the tongue and allow to dissolve as needed, Orally, every four hours prn nausea;?Continue Meclizine HCl Tablet, 50 MG, 1 tablet as needed, Orally, every 8 hrs prn vertigo.?? * Procedure Codes:? * Preventive Medicine:? ??Counseling:?Care goal follow-up plan:?Counseling for abnormal BMI given?Yes ?Above Normal BMI Follow-up?Dietary management education, guidance, and counseling, Dietary needs education, Exercise promotion: strength training, Exercise promotion: stretching, Feeding regime, Giving encouragement to exercise, Lifestyle education regarding diet, Nutrition / feeding management, Nutrition therapy, Prescribed activity/exercise education, Prescribed diet education, Prescribed dietary intake, Special diet education, Weight monitoring , Intervention, Order not done: Medical or Other reason not done ?Smoking/Tobacco Use?Patient counseled on the dangers of tobacco use and urged to quit.?12/28/2024 ?Patient Lifestyle Goals?Patient wants to quit ?Treatment Goals?Set a quit date, Cut down by 1 cigarette a week ?Barriers?Stress, Social smoker ?Self-Management Plan?Make a plan to cut down number of cigarettes over time and set a date to work towards quitting ???. * Follow Up:?4 Weeks (Reason: ov no tests) * Images: * Sign off status: Completed true * Provider:?Agapito Crane MD Date:?12/01 Generated for Carey hewitt/Dina/Josie on:?02/15/2025 12:24 PM EDT History and Physical Notes * HPI [...]
== END ==
LOC: HO.CARD 10:54
PROVIDERS: PCP Internal Medicine Medical Oncology; Visit Provider Internal Medicine Medical Oncology
DX: R42 Dizziness and giddiness (principal); R07.89 Other chest pain
CPT/HCPCS: 93242

== ENCOUNTER → 2025-02-15 10:58 | Outpatient (BNV) | payer MEDICAID, SELFPAY | PROVIDERS: PCP Internal Medicine Medical Oncology; Visit Provider Internal Medicine Cardiovascular Disease | DX: I49.3 Ventricular premature depolarization (principal); I49.1 Atrial premature depolarization; I47.10 Supraventricular tachycardia, unspecified | CPT/HCPCS: 93244 ==

== ENCOUNTER 2025-02-23 08:35 | Outpatient (REF) | payer MEDICAID, SELFPAY ==
--- OUTSIDE RECORDS SUMMARY | 2024-12-28 06:45 | XMS_ITS ---
Author Organization Agapito Crane III, MD Address [address] [place] [address] Care Team Providers Care Central Communications Specialist Name Role Phone Agapito Crane Primary Care Provider [phone] Allergies Allergen (clinical drug ingredient) Drug/Non Drug [...] HCl 20 MG 1 capsule Orally On a day 02/27/2024 Active Zepbound 2.5 MG/0.5ML [...] Problem Status W/U Status Risk Notes Problem [id number] Essential hypertension (I10) Active confirmed Her blood pressure was elevated today. She [...] sodium restriction today. We discussed lifestyle modifications today.She agrees to take 5 mg of lisinopril and I prescribed. Vital Signs Temperature 98.1 degrees Fahrenheit 12/29/19 25 Blood pressure systolic 145 mm Hg 12/29/19 25 Blood pressure diastolic 89 mm Hg 025 Heart Rate 74 /min 12/28/2024 Height 64 in 12/28/2024 Weight 185 lbs 12/28/2024 BMI 31.75 kg/m2 12/28/2024 Encounters Encounter Location Date Provider Diagnosis Agapito Crane III, MD [address] [place] [address] [facility] [address] 12/28/2024 Agapito Crane Obesity (BMI 30.0-34 .9) [...] Zepbound 2.5 MG/0.5ML 0.5 mL Subcutaneous weekly amLODIPine Besylate 5 MG TAKE 1 TABLET [...] Weeks, Reason: ov no tests Provider Name:Agapito Crane, 02/28/2025 10:00:00 AM, [address] [place] [address] , [place] [address], [place], [address], Progress Notes * DIONI OHDOB:1960 (64 yo F)Acc No.[id number]:12/28/2024 Progress Notes Patient: DIONI LIRA Provider: Stephy Crane MD :1960 A ge:64 Y S ex:Female Date:12/28/2024 Address:[address] [place] [address] , [id number] Subjective: * Chief Complaints: * D epressionSleep [...] did not agree to resume them amlodipine oss architect a substitute for either of these [...] 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 She works 80 hours per week. She is with no children. She lives in [place]. {'Smoking': 'Yes'} Smoking - Reduced to 3 [...] 0 12/28/2024 Generated for Printi ng/Faliamg/eTransmitting on: 0 02/23/2025 08:58 AM EDT History and Physical Notes * HPI (History [...]
[2025-02-23 09:53] LABS: MANUAL DIFF FLAG NO
[2025-02-23 09:55] LABS: Basophils Absolute Auto 0.1 X10*3/uL (0.0-0.2); Basophils Percent Auto 0.9 % (0-2); Eosinophils Absolute Auto 0.3 X10*3/uL (0.0-0.4); Eosinophils Percent Auto 4.2 % (0-4); Hematocrit 41.1 % (37.0-47.0); Hemoglobin 13.4 g/dl (12.0-16.0); Imm Gran Abs Auto 0.02 X10*3/uL (0.00-0.03); Imm Gran Pct Auto 0.3 % (0.0-0.4); Lymphocytes Absolute Auto 2.8 X10*3/uL (1.2-4.9); Lymphocytes Percent Auto 36.2 % (20-40); Mean Corpuscular HGB Conc 32.6 g/dl (31.0-35.0); Mean Corpuscular Hemoglobin 28.4 pg (27.0-33.0); Mean Corpuscular Volume 87.1 fL (80.0-98.0); Mean Platelet Volume 10.2 fL (9.4-12.3); Monocytes Absolute Auto 0.6 X10*3/uL (0.1-1.2); Neutrophils Absolute Auto 3.9 x10*3/uL (2.0-8.3); Neutrophils Percent Auto 50.4 % (45-73); Platelet Count 299 X10*3/uL (160-400); Red Blood Count 4.72 X10*6/uL (4.20-5.50); Red Cell Distribution Width 13.4 % (11.0-16.0); White Blood Count 7.7 X10*3/uL (4.8-10.8)
[2025-02-23 10:10] LABS: Albumin Level 4.5 g/dL (3.5-5.0); Alkaline Phosphatase 103 U/L (39-117); Anion Gap 13 (12-20); Aspartate Amino Transferase 25 U/L (5-31); Bilirubin Total 0.3 mg/dL (0.0-1.0); Blood Urea Nitrogen 14 mg/dL (9-16); Calcium 9.2 mg/dL (8.4-10.2); Carbon Dioxide 24 mmol/L (22-29); Chloride 109 mmol/L (96-108); Estimated Glomerular Filt Rate 55; Glucose Random 90 mg/dL (60-115); Potassium 4.5 mmol/L (3.3-5.1); Sodium 141 mmol/L (135-145); Total Protein 6.9 g/dL (6.5-8.0)
[2025-02-23 10:24] LABS: Alanine Aminotransferase 40 U/L (0-31)
== END 2025-02-23 08:36 | disposition home or self-care (01) ==
LOC: HO.10HDL 08:35
PROVIDERS: Visit Provider Internal Medicine Medical Oncology
DX: E66.9 Obesity, unspecified (principal)
CPT/HCPCS: 36415; 80053; 85025

== ENCOUNTER 2025-07-12 10:49 | Outpatient (REF) | payer MEDICAID, SELFPAY ==
[2025-07-14 03:16] LABS: Bacterial Vaginosis PCR NEGATIVE (Negative); Candida Group PCR NOT DETECTED (Not Detect); Candida glab krusei PCR NOT DETECTED (Not Detect); Trichomonas vaginalis PCR NOT DETECTED (Not Detect)
[2025-07-14 03:47] LABS: CT PCR NOT DETECTED (Not Detect.); NG PCR NOT DETECTED (Not Detect.)
== END 2025-07-12 10:50 | disposition home or self-care (01) ==
LOC: HO.LNP 10:49
PROVIDERS: PCP Internal Medicine Medical Oncology; Visit Provider Advanced Practice Midwife
DX: Z01.419 Encounter for gynecological examination (general) (routine) without abnormal findings (principal); F17.200 Nicotine dependence, unspecified, uncomplicated; Z12.39 Encounter for other screening for malignant neoplasm of breast; Z98.51 Tubal ligation status; Z78.0 Asymptomatic menopausal state; Z20.2 Contact with and (suspected) exposure to infections with a predominantly sexual mode of transmission
CPT/HCPCS: 81515; 87491; 87591; 87626; 88175; 99386

== ENCOUNTER 2025-07-12 10:49 | Outpatient (AMB) | payer MEDICAID, SELFPAY ==
--- OUTSIDE RECORDS SUMMARY | 2024-04-29 09:20 | XMS_ITS ---
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 :1960 A ge:64 Y S ex:Female Date:04/29/2024 Address:[address] [place] [address] [place], [id number] Pcp:AARON ALBRECHT MD Subjective: * Chief Complaints: * 1 . 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 * Medical History: A nxiety disorder, unspecified, Personal history of cervical dysplasia, Postmenopausal atrophic vaginitis, Atrophy of vulva. 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 S exual activity c urrently sexually active, with men. L ast Pap Smear: NIL, NEG HPV, 2017. M ammogram: 2 019. A bnormal Pap Smear: h istory of abnormal pap smears. L MP and menses m enopause. H istory of STD's: n one. M enarche 1 3. C olonoscopy Cologuard Positive. * OB History: T otal pregnancies 1 . A bortion(s) 1 . Objective: * Vitals: Assessment: Plan: * Treatment: * Images: Billing Information: * Visit Code: * Procedure Codes: * Electronic signature of Ysabel Ferreira MD on 07/12/2025 at 12:54 PM EST Sign off status: Pending * Appointment Provider: Roxanna Ferreira M.D. Date: 0 04/29/2024 Generated for Carey hewitt/Dina/Chapoitting on: 1 09/11/2024 12:54 PM EST
--- OUTSIDE RECORDS SUMMARY | 2024-06-17 05:30 | XMS_ITS ---
Author Organization Agapito Crane III, MD Address [address] [place] [address] Care Team Providers Care Title Curator Name Role Phone Dr. Agapito Crane III Primary Care Provider Allergies Allergen (clinical drug ingredient) Drug/Non Drug Allergy documented on EMR Reaction Allergy Type Onset Date Status No Known Drug Allergy Unknown Drug Allergy Active REASON FOR VISIT Obesity, Depression, Sleep apnea, Tobacco dependence Medications Medication SIG (Take, Route, Frequency, Duration) Notes Start Date End Date Status Meclizine HCl 50 MG 1 tablet as needed O rally every 8 hrs prn vertigo 05/06/2023 Active clonazePAM 0.5 MG 1 tablet Orally Once a day 04/29/2024 Active Zepbound 2.5 MG/0.5ML 0.5 mL Subcutaneou s weekly for 28 days 06/17/2024 05/19/2025 Active FLUoxetine HCl 20 MG 1 capsule Orally On ce a day 02/27/2024 Active Sertraline HCl 25 MG 1 tablet Orally Onc e a day 05/20/2024 Active amLODIPine Besylate 5 MG TAKE 1 TABLET B Y MOUTH EVERY DAY FOR 90 DAYS Oral Active Omeprazole 20 MG TAKE 1 CAPSULE BY [facility] EVERY DAY Active Atorvastatin Calcium 10 MG 1 tablet Orally Once a day 03/03/2024 Active Ondansetron 8 MG 1 tablet on the tong ue and allow to dissolve as needed Orally every four hours prn nausea 05/06/2023 Active Social History Tobacco Use: Social History Observation Description Date Details (start date - stop date) Current Smoker NA - NA Sex Assigned At : Social History Observation Description Sex Assigned At Female Tobacco Use/Smoking Question Answer Notes Patient is a current smoker Alcohol Screen Question Answer Notes Did you have a drink containing alcohol in the p ast year? No Points 0 Interpretation Negative Vital Signs Temperature 98.2 degrees Fahrenheit 06/17/20 24 Blood pressure systolic 122 mm Hg 06/17/20 24 Blood pressure diastolic 85 mm Hg 024 Heart Rate 67 /min 06/17/2024 Height 64 in 06/17/2024 Weight 208 lbs 06/17/2024 BMI 35.7 kg/m2 06/17/2024 Encounters Encounter Location Date Provider Diagnosis Agapito Crane III, MD [address] [place] [address] [address] [place], [place] [id number] 06/17/2024 Agapito Crane Obesity (BMI 30.0-34.9) E66.9 ; Sleep apnea, unspecified type G47.30 ; Depression, unspecified depression type F32.9 ; Trigger finger (acquired) M65.30 and Tobacco dependence F17.200 Assessments Encounter Date Diagnosis (ICD Code) Assessment Notes Treatment Notes Treatment Clinical Notes 06/17/2024 Obesity (BMI 30.0-34.9) (ICD-10 - E66.9) On her last visit I prescribed Wegovy but her insurance company has declined to cover the chart. Today I prescribed Zepbound and we will see if it is covered. We discussed her diet and nutrition at length and made a plan to lose weight at a rate of one half of a pound per week. 06/17/2024 Sleep apnea, unspecified type (ICD-10 - G47.30) She denies any daytime somnolence and says she is happy with her current state of affairs. 06/17/2024 Depression, unspecified depression type (ICD-10 - F32.9) She continues on the sertraline. She has had no side effects. 06/17/2024 Trigger finger (acquired) (ICD-10 - M65.30) She does not wish treatment at this time. 06/17/2024 Tobacco dependence (ICD-10 - F17.200) We have reviewed all of the health consequences of continued smoking. I have recommended smoke [place] and the smoking cessation programs at the local hospitals. She will consider this. I have made her aware of the utility of nicotine patches and Chantix. She will consider these as well. Plan Of Treatment Medication Medication Name Sig Start Date Stop Date Notes Meclizine HCl 50 MG 1 tablet as needed O rally every 8 hrs prn vertigo 05/06/2023 clonazePAM 0.5 MG 1 tablet Orally Once a day 04/29/2024 Zepbound 2.5 MG/0.5ML 0.5 mL Subcutaneou s weekly for 28 days 06/17/2024 05/19/2025 FLUoxetine HCl 20 MG 1 capsule Orally Once a day Sertraline HCl 25 MG 1 tablet Orally Once a day 05/20/2024 amLODIPine Besylate 5 MG TAKE 1 TABLET B Y MOUTH EVERY DAY FOR 90 DAYS Oral Omeprazole 20 MG TAKE 1 CAPSULE BY [facility] EVERY DAY Atorvastatin Calcium 10 MG 1 tablet Orally Once a day 10/2023 Ondansetron 8 MG 1 tablet on the tong ue and allow to dissolve as needed Orally every four hours prn nausea 05/06/2023 Next Appt Details Follow Up: 3 MonthsSeptember , Reason: OV, Weight Loss Progress Provider Name:Agapito Crane , 08/09/2025 09:30:00 AM, [address] [place] [address] [address], [place], [phone], Provider Name:Agapito Crane , 03/02/2026 10:00:00 AM, [address] [place] [address] [address], [place], [phone], Progress Notes * DIONI OHDOB:1960 (64 yo F)Acc No.[id number]:06/17/2024 Progress Notes Patient: DIONI LIRA Provider: Stephy Crane MD :1960 A ge:64 Y S ex:Female Date:06/17/2024 Address:[address] [place] [address] , [id number] Subjective: * Chief Complaints: * O besityDepressionSleep apneaTobacco dependence * HPI: C OVID-19 Screening: Questions H ave you experienced fever, chills, cough, sore throat, shortness of breath, difficulty breathing, muscle aches, loss of taste or smell? N o H ave you been exposed to the virus within the last 10 days? N o H ave you travelled internationally in the last 10 days? N o H ave you been exposed to COVID-19 in the past? N o * : The patient, a 64-year-old female, presented with a history of high blood pressure and obesity. She reported that she had undergone several tests, including a mammogram, echocardiogram, and a nuclear stress test, all of which returned normal results. The patient also mentioned a papilloma on her right eyelid, which she has chosen to monitor rather than undergo surgery. She has been advised to lose weight, as she is currently in the obese range. The patient is a smoker and has been advised to quit. She has been taking vitamin D, multivitamins, and B12. The patient has been prescribed a new medication, Zip Bound, for weight loss. * ROS: G eneral/Constitutional: pain o nly normal aches and pains. C hills d enies.?Fatigue a dmits. F ever d enies. E NT: Decreased hearing d enies. R espiratory: Cough d enies. C ardiovascular: Chest pain with exertion d enies. D yspnea on exertion?denies. S hortness of breath d enies. G astrointestinal: Constipation o ccasional. D ecreased appetite d enies. D iarrhea d enies. H eartburn d enies. N ausea d enies. R ectal bleeding d enies. V omiting d enies. H ematology: bruising d enies. p etechiae d enies. S wollen glands n one have been noted. G enitourinary: Frequent urination a t night. M usculoskeletal: Muscle aches d enies. P ainful joints d enies. S ciatica d enies. W eakness d enies. S kin: Itching d enies. R karen d enies. S kin lesion(s)?denies. N eurologic: Difficulty speaking d enies. D izziness d enies.?Headache d enies. L ow back pain d enies. P sychiatric: Depressed mood w hich is mild. * Medical History: * Surgical History: t ubal ligation 04/1986tonsillectomy No history * Hospitalization/Major Diagno stic Procedure: N o history * Family History: F ather: 82 yrs, cad, gastric cancer, diagnosed with Cancer. M other: 45 yrs, lung cancer, diagnosed with Cancer. S iblings: alive. M aternal Grand Mother: alive, diagnosed with DM, HTN, CVD. 1 brother(s) - healthy. . A maternal grandmother was hypertensive with coronary artery disease and type 2 diabetes mellitus. Her brother is healthy and well. She has no children. She is not aware of any family history of substance use disorder, addiction, or mental illness. * Social History: T obacco Use: T obacco Use/Smoking P atient is a c urrent smoker D rugs/Alcohol: D rugs H ave you used drugs other than those for medical reasons in the past 12 months? N o Alcohol Screen D id you have a drink containing alcohol in the past year? 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 She works 80 hours per week. She is with no children. She lives in [place]. {'Smoking': 'Yes'}. * Medications: T akingOmeprazole 20 MG Capsule Delayed Release TAKE 1 CAPSULE BY MOUTH EVERY DAY Ondansetron 8 MG Tablet Disintegrating 1 tablet on the tongue and allow to dissolve as needed Orally every four hours prn nausea , Notes to Pharmacist: As neededMeclizine HCl 50 MG Tablet 1 tablet as needed Orally every 8 hrs prn vertigo , Notes to Pharmacist: As neededclonazePAM 0.5 MG Tablet 1 tablet Orally Once a day Sertraline HCl 25 MG Tablet 1 tablet Orally Once a day amLODIPine Besylate 5 MG Tablet TAKE 1 TABLET BY MOUTH EVERY DAY FOR 90 DAYS Oral Taking Omeprazole 20 MG Capsule Delayed Release TAKE 1 CAPSULE BY MOUTH EVERY DAY Taking Ondansetron 8 MG Tablet Disintegrating 1 tablet on the tongue and allow to dissolve as needed Orally every four hours prn nausea , Notes to Pharmacist: As neededTaking Meclizine HCl 50 MG Tablet 1 tablet as needed Orally every 8 hrs prn vertigo , Notes to Pharmacist: As neededTaking clonazePAM 0.5 MG Tablet 1 tablet Orally Once a day Taking Sertraline HCl 25 MG Tablet 1 tablet Orally Once a day Taking amLODIPine Besylate 5 MG Tablet TAKE 1 TABLET BY MOUTH EVERY DAY FOR 90 DAYS Oral DiscontinuedAtorvastatin Calcium 10 MG Tablet 1 tablet Orally Once a day clonazePAM 0.5 MG Tablet TAKE 1 TABLET BY MOUTH EVERY DAY FLUoxetine HCl 20 MG Capsule 1 capsule Orally Once a day Medication List reviewed and reconciled with the patientDiscontinued Atorvastatin Calcium 10 MG Tablet 1 tablet Orally Once a day Discontinued clonazePAM 0.5 MG Tablet TAKE 1 TABLET BY MOUTH EVERY DAY Discontinued FLUoxetine HCl 20 MG Capsule 1 capsule Orally Once a day Medication List reviewed and reconciled with the patient * Allergies: N o Known Drug Allergyno[Allergies Verified] Objective: * Vitals: H t: 64, Wt: 208, BMI:35.7, BP: 122/85, HR: 67, Temp: 98.2, Ht-cm: 162.56, Wt-k.35. * P ast Orders: Imaging:MM tomosynthesis scr eening BI * Performed Date 05/05/2024 01/17/2021 10:00 AM 08:45 AM Order Date 05/05/2024 01/17/2021 * Examination: G eneral Examination: GENERAL APPEARANCE: p leasant, well nourished, well developed, in no acute distress, calm and relaxed, obese, woman. HEAD: a traumatic, normocephalic. EYES: e jessenia, perrla, anicteric, conjugate. EARS: n ormal. NOSE: s eptum intact. ORAL CAVITY: n ormal, unremarkable. NECK/THYROID: n o jugular venous distention, no carotid bruit, thyroid normal. LYMPH NODES: n o enlarged lymph nodes,spleen normal. SKIN: n o suspicious lesions, anicteric. HEART: n o clicks, gallops, murmurs, or rubs, regular rhythm, S1, S2 normal, no s3, or vascular bruits. LUNGS: c lear to auscultation . BREASTS: N ot examined. ABDOMEN: b owel sounds normal, no ascites, no organomegaly, no mass, centripital obesity. RECTAL EXAM: n ot examined. MUSCULOSKELETAL: e xtremities unremarkable, no clubbing, cyanosis or edema. PERIPHERAL PULSES: n ormal. NEUROLOGIC: a lert and oriented, cranial nerves 2-12 grossly intact, deep tendon reflexes 2+ symmetrical, motor strength normal upper and lower extremities, sensory exam intact. PSYCH: a lert, oriented, mood depressed. ? - : { 'Blood Pressure':'122/85', 'Weight': '208 lbs'}. Assessment: * Assessment: 1. O besity (BMI 30.0-34.9) - E66.9 (Primary) N otes :On her last visit I prescribed Wegovy but her insurance company has declined to cover the chart.? Today I prescribed Zepbound and we will see if it is covered. We discussed her diet and nutrition at length and made a plan to lose weight at a rate of one half of a pound per week. 2 . S leep apnea, unspecified type - G47.30 N otes :She denies any daytime somnolence and says she is happy with her current state of affairs. 3 . D epression, unspecified depression type - F32.9 N otes :She continues on the sertraline. She has had no side effects. 4 . T repairer finger (acquired) - M65.30 N otes :She does not wish treatment at this time. 5 . T obacco dependence - F17.200 N otes :We have reviewed all of the health consequences of continued smoking. I have recommended smoke [place] and the smoking cessation programs at the local hospitals. She will consider this. I have made her aware of the utility of nicotine patches and Chantix. She will consider these as well. Plan: * Treatment: 2. O thers Continue Omeprazole Capsule Delayed Release, 20 MG, TAKE 1 CAPSULE BY MOUTH EVERY DAY; C ontinue Atorvastatin Calcium Tablet, 10 MG, 1 tablet, Orally, Once a day; C ontinue Ondansetron Tablet Disintegrating, 8 MG, 1 tablet on the tongue and allow to dissolve as needed, Orally, every four hours prn nausea; C ontinue Meclizine HCl Tablet, 50 MG, 1 tablet as needed, Orally, every 8 hrs prn vertigo. * Procedure Codes: * Preventive Medicine: Counseling: C are goal follow-up plan: Counseling for abnormal BMI given Y es Above Normal BMI Follow-up D ietary management education, guidance, and counseling, Dietary needs education, Exercise promotion: strength training, Exercise promotion: stretching, Feeding regime, Giving encouragement to exercise, Lifestyle education regarding diet, Nutrition / feeding management, Nutrition therapy, Prescribed activity/exercise education, Prescribed diet education, Prescribed dietary intake, Special diet education, Weight monitoring , Intervention, Order not done: Medical or Other reason not done S moking/Tobacco Use Patient counseled on the dangers of tobacco use and urged to quit. 1 Patient Lifestyle Goals P atient wants to quit Treatment Goals C ut down by 1 cigarette a week, Set a quit date Barriers S ocial smoker, Stress Self-Management Plan M aliza a plan to cut down number of cigarettes over time and set a date to work towards quitting * Follow Up: 3 MonthsSeptember (Reason: OV, Weight Loss Progress) * Images: * Sign off status: Completed true * Provider: Stephy Crane MD Date: 1 Generated for Carey hewitt/Dina/eTransmitting on: 09/11/2024 12:53 PM EST History and Physical Notes * HPI (History of Present Illness) Category Sub-Category Detail Notes COVID-19 Screening Questions Have you had any new onset fever, chills, cough, congestion, sore throat, shortness of breath, muscle aches?: No Have you been exposed to the virus withi n the last 10 days?: No Have you travelled internationally in e last 10 days?: No Have you been exposed to COVID-19 in the past?: No Examination Category Sub-Category Detail Notes General Examination GENERAL APPEARANCE: pleasant , well nourished, well developed, in no acute distress, calm and relaxed, obese, woman HEAD: atraumatic, normocep halic EYES: eomi, perrla, anicte fawn, conjugate EARS: normal NOSE: septum intact NECK/THYROID: no jugular venous di stention, no carotid bruit, thyroid normal HEART: no clicks, gallops, murmurs, or rubs, regular rhythm, S1, S2 normal, no s3, or vascular bruits LUNGS: clear to auscultatio n ABDOMEN: bowel sounds normal, no ascites, no organomegaly, no mass, centripital obesity NEUROLOGIC: alert and oriented, cranial nerves 2-12 grossly intact, deep tendon reflexes 2+ symmetrical, motor strength normal upper and lower extremities, sensory exam intact SKIN: no suspicious lesion s, anicteric PERIPHERAL PULSES: normal BREASTS: Not examined MUSCULOSKELETAL: extremities unremark able, no clubbing, cyanosis or edema LYMPH NODES: no enlarged lymph no stefanie,spleen normal RECTAL EXAM: not examined PSYCH: alert, oriented, moo d depressed ORAL CAVITY: normal, unremarkable
--- OUTSIDE RECORDS SUMMARY | 2024-09-17 04:30 | XMS_ITS ---
Author Organization Agapito Crane III, MD Address [address] [place] [address] Care Team Providers Care Track Laying Machine Operator Name Role Phone Dr. Agapito Crane III Primary Care Provider [phone] Allergies Allergen (clinical drug ingredient) Drug/Non Drug Allergy documented on EMR Reaction Allergy Type Onset Date Status No Known Drug Allergy Unknown Drug Allergy Active Reason For Referral Reason Evaluate and Treat Diagnosis 1 Postmenopausal (Z78. 0) Diagnosis 2 Routine gynecologica l examination (Z01.419) Referral Organization Agapito Crane III, MD Referring Provider First Name Agapito Referring Provider Last Name Royce Referring Provider Speciality Internal M edicine Referred Organization [facility] nter Referred Provider [facility] er, ASSOCIATE PROFESSOR OF PSYCHOLOGY & Midwifery Referred Address [address] [place] [id number], Referred Provider Specialty OB - Gynecol ogy General Notes D, Harika 09/20/2024 11:23:10 AM > Referral faxed with progress note Referral Priority Routine Referral Appointment Date 01/13/2025 REASON FOR VISIT Zepbound Weight loss program, Occasional nausea, Sleep apnea, Obesity, Tobacco dependence, Hyperlipidemia Medications Medication SIG (Take, Route, Frequency, Duration) Notes Start Date End Date Status FLUoxetine HCl 20 MG 1 capsule Orally On ce a day 02/27/2024 Active Sertraline HCl 25 MG 1 tablet Orally Once a day Active Meclizine HCl 50 MG 1 tablet as needed O rally every 8 hrs prn vertigo 05/06/2023 Active Atorvastatin Calcium 10 MG 1 tablet Orally Once a day 03/03/2024 Active Ondansetron 8 MG 1 tablet on the tong ue and allow to dissolve as needed Orally every four hours prn nausea 05/06/2023 Active valACYclovir HCl 500 MG TAKE 1 TABLET BY MOUTH EVERY DAY FOR 5 DAYS Active amLODIPine Besylate 5 MG TAKE 1 TABLET B Y MOUTH EVERY DAY FOR 90 DAYS Oral Activ e Zepbound 2.5 MG/0.5ML 0.5 mL Subcutaneous weekly 1 Active clonazePAM 0.5 MG TAKE 1 TABLET BY OSCAR TH EVERY DAY FOR 30 DAYS 08/12/2024 Active Omeprazole 20 MG TAKE 1 CAPSULE BY MO [facility] EVERY DAY Active Social History Tobacco Use: Social History [...] Points 0 Interpretation Negative Vital Signs Temperature 97.8 degrees Fahrenheit 09/17/19 25 Blood pressure systolic 122 mm Hg 09/17/19 25 Blood pressure diastolic 85 mm Hg 025 Heart Rate 71 /min 09/17/2024 Height 64 in 09/17/2024 Weight 195 lbs 09/17/2024 BMI 33.47 kg/m2 09/17/2024 Encounters Encounter Location Date Provider Diagnosis Agapito Crane III, MD [address] [place] [address] [place] [address] 09/17/2024 Agapito Crane Obesity (BMI 30.0-34 .9) E66.9 ; Depression, unspecified depression type F32.9 ; Sleep apnea, unspecified type G47.30 ; Tobacco dependence F17.200 and Hyperlipidemia, unspecified hyperlipidemia type E78.5 Assessments Encounter Date Diagnosis (ICD Code) Assessment Notes Treat ment Notes Treatment Clinical Notes 09/17/2024 Obesity (BMI 30.0-34.9) (ICD-10 - E66.9) She has successfully lost 13 pounds. Her only side effects or occasional twinges of nausea the first day oor 2 after the injection. No change in her medication dose was necessary today. She will have monthly follow-up. 09/17/2024 Depression, unspecified depression type (ICD-10 - F32.9) She continues on the sertraline. She has had no side effects. 09/17/2024 Sleep apnea, unspecified type (ICD-10 - G47.30) She denies any daytime somnolence and says she is happy with her current state of affairs. 09/17/2024 Tobacco dependence (ICD-10 - F17.200) We have reviewed all of the health consequences of continued smoking. I have recommended smoke [place] and the smoking cessation programs at the local hospitals. She will consider this. I have made her aware of the utility of nicotine patches and Chantix. She will consider these as well. 09/17/2024 Hyperlipidemia, unspecified hyperlipidemia type (ICD-10 - E78.5) Comprehensive blood work is not available but has been ordered. Her lipids have been stable Plan Of Treatment Medication Medication Name Sig Start Date Stop Date Notes FLUoxetine HCl 20 MG 1 capsule Orally Once a day 4 Sertraline HCl 25 MG 1 tablet Orally Once a day 05/20/2024 Meclizine HCl 50 MG 1 tablet as needed O rally every 8 hrs prn vertigo 05/06/2023 Atorvastatin Calcium 10 MG 1 tablet Orally Once a day 0710/2023 Ondansetron 8 MG 1 tablet on the tong ue and allow to dissolve as needed Orally every four hours prn nausea 05/06/2023 valACYclovir HCl 500 MG TAKE 1 TABLET BY MOUTH EVERY DAY FOR 5 DAYS amLODIPine Besylate 5 MG TAKE 1 TABLET B Y MOUTH EVERY DAY FOR 90 DAYS Oral Zepbound 2.5 MG/0.5ML 0.5 mL Subcutaneous weekly clonazePAM 0.5 MG TAKE 1 TABLET BY OSCAR TH EVERY DAY FOR 30 DAYS 08/12/2024 Omeprazole 20 MG TAKE 1 CAPSULE BY MO [facility] EVERY DAY Pending Test Test Name Order Date BONE DENSITY DEXA 09/17/2024 Referrals Referral Date Details 09/17/2024 09/17/2024, Evaluate and Treat, ASSOCIATE PROFESSOR OF PSYCHOLOGY & Midwifery [facility], [address] [place] [address], [place], [place], [phone], Next Appt Details Follow Up: 4 Weeks, Once a m [facility], Reason: OV, To monitor weight and blood pressure Provider Name:Agapito Crane , 08/09/2025 09:30:00 AM, [address] [facility] [facility], [place], [address], Provider Name:Agapito Crane , 03/02/2026 10:00:00 AM, [address] [facility] [address], [place], [address], Progress Notes * DIONI OHDOB:1960 (64 yo F)Acc No.[id number]:09/17/2024 Progress Notes Patient: DIONI LIRA Provider: Stephy Crane MD :1960 A ge:64 Y S ex:Female Date:09/17/2024 Address:[address] [place] [address] , [id number] Subjective: * Chief Complaints: * Z epbound Weight loss programOccasional nauseaSleep apneaObesityTobacco dependenceHyperlipidemia * HPI: C OVID-19 Screening: Questions H ave you had any new onset fever, chills, cough, congestion, sore throat, shortness of breath, muscle aches? N o * : The patient, a 64-year-old female, presented with a chief complaint of constipation, which she described as manageable. She reported a significant decrease in appetite and a reduction in her craving for smoking. She has experienced a weight loss of 13 lbs, which she attributes to her current medication. The patient also mentioned feeling dizzy when standing up, which could be a sign of rapid weight loss or dehydration. * ROS: G eneral/Constitutional: pain o nly normal aches and pains. C hills d enies.?Fatigue a dmits. F ever d enies. A dmits W eight loss, S everal pounds. E NT: Decreased hearing d enies. R espiratory: Cough d enies. C ardiovascular: Chest pain with exertion d enies. D yspnea on exertion?denies. S hortness of breath d enies. G astrointestinal: Admits C onstipation, o ccasional. D ecreased appetite d enies. D iarrhea d enies. H eartburn d enies. N ausea t hat is mild. R ectal bleeding d enies. V omiting [...] M aternal Grand Mother: alive, diagnosed with CVD, DM, HTN. 1 brother(s) - healthy. . 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 She is with no children. She lives in [place]. {'Smoking': 'Yes'} Smoking - Reduced to 3 cigarettes a day. * Medications: T akingOmeprazole 20 MG Capsule Delayed Release TAKE 1 CAPSULE BY MOUTH EVERY DAY Meclizine HCl 50 MG Tablet 1 tablet as needed Orally every 8 hrs prn vertigo Sertraline HCl 25 MG Tablet 1 tablet Orally Once a day Zepbound 2.5 MG/0.5ML Solution Auto-injector 0.5 mL Subcutaneous weekly , stop date 05/19/2025lonazePAM 0.5 MG Tablet TAKE 1 TABLET BY MOUTH EVERY DAY FOR 30 DAYS Medication List reviewed and reconciled with the patientTaking Omeprazole 20 MG Capsule Delayed Release TAKE 1 CAPSULE BY MOUTH EVERY DAY Taking Meclizine HCl 50 MG Tablet 1 tablet as needed Orally every 8 hrs prn vertigo Taking Sertraline HCl 25 MG Tablet 1 tablet Orally Once a day Taking Zepbound 2.5 MG/0.5ML Solution Auto-injector 0.5 mL Subcutaneous weekly , stop date 05/19/2025Taking clonazePAM 0.5 MG Tablet TAKE 1 TABLET BY MOUTH EVERY DAY FOR 30 DAYS Medication List reviewed and reconciled with the patient * Allergies: N o Known Drug Allergyno[Allergies Verified] Objective: * Vitals: H t: 64, Wt: 195, BMI:33.47, BP: 122/85, HR: 71, Temp: 97.8, Ht-cm: 162.56, Wt-k.45. * Examination: G eneral Examination: GENERAL APPEARANCE: [...] extremities, sensory exam intact. PSYCH: a lert, oriented. Assessment: * Assessment: 1. O besity (BMI 30.0-34.9) - E66.9 (Primary) N otes :She has successfully lost 13 pounds. Her only side effects or occasional twinges of nausea the first day oor 2 after the injection. No change in her medication dose was necessary today. She will have monthly follow-up. 2 . D epression, unspecified depression type - F32.9 N otes :She continues on the sertraline. She has had no side effects. 3 . S leep apnea, unspecified type - G47.30 N otes :She denies any daytime somnolence and says she is happy with her current state of affairs. 4 . T obacco dependence - F17.200 N otes :We have reviewed all of the health consequences of continued smoking. I have recommended smoke [place] and the smoking cessation programs at the local hospitals. She will consider this. I have made her aware of the utility of nicotine patches and Chantix. She will consider these as well. 5 . H yperlipidemia, unspecified hyperlipidemia type - E78.5 N otes :Comprehensive blood work is not available but has been ordered. Her lipids have been stable Plan: * Treatment: 2. O thers Continue [...] needed, Orally, every 8 hrs prn vertigo. [facility] To[facility] - Gynecology Reason:Evaluate and Treat * Imaging: * I maging: BONE DENSITY DEXA * Procedure Codes: * Preventive Medicine: Counseling: C are goal follow-up plan: Counseling for abnormal BMI given Y es Above Normal BMI Follow-up D ietary management education, guidance, and counseling, Dietary needs education S moking/Tobacco Use Patient counseled on the dangers of tobacco use and urged to quit. 0 09/17/2024 Patient Lifestyle Goals P atient wants to quit Treatment Goals S et a quit date, Cut down by 1 cigarette a week Barriers S tress, Social smoker Self-Management Plan M aliza a plan to cut down number of cigarettes over time and set a date to work towards quitting * Follow Up: 4 Weeks, Once a month (Reason: OV, To monitor weight and blood pressure) * Images: * Sign off status: Completed true * Provider: Stephy Crane MD Date: 0 09/17/2024 Generated for Meghanni marcelina/Dina/eTransmitting on: 09/11/2024 12:55 PM EST History and Physical Notes * HPI (History of Present Illness) Category Sub-Category Detail Notes COVID-19 Screening Questions Have you had any new onset fever, chills, cough, congestion, sore throat, shortness of breath, muscle aches?: No Examination Category Sub-Category Detail Notes General [...] normal RECTAL EXAM: not examined PSYCH: alert, oriented ORAL CAVITY: normal, unremarkable Consultation Request Notes Referral Date Referring Provider Referred Provider Not es 09/17/2024 Agapito Crane [facility], ASSOCIATE PROFESSOR OF PSYCHOLOGY & Midwifery Evaluate and Treat
--- OUTSIDE RECORDS SUMMARY | 2024-10-21 07:15 | XMS_ITS ---
Author Organization Agapito Crane III, MD Address [address] [place] [address] [place] [address] Care Team Providers Care Cryptologic Supervisor Name Role Phone Dr. Agapito Crane III Primary Care Provider REASON FOR VISIT follow up Social History Sex Assigned At : Social History Observation Description Sex Assigned At Female Encounters Encounter Location Date Provider Diagnosis Agapito Crane III, MD [address] [place] [address] [place] [address] 10/21/2024 Agapito Crane Plan Of Treatment Next Appt Details Provider Name:Agapito Crane , 08/09/2025 09:30:00 AM, [address] [place] [address] [place], [address], Provider Name:Agapito Crane , 03/02/2026 10:00:00 AM, [address] [place] [address] [place], [address], Progress Notes * DIONI OHDOB:1960 (65 yo F)Acc No.[id number]:10/21/2024 Progress Notes Patient: DIONI LIRA Provider: Stephy Crane MD :1960 A ge:64 Y S ex:Female Date:10/21/2024 Address:[address] [place] [address] [address] [id number] Subjective: * Chief Complaints: * 1 . Follow up. * Medical History: Objective: * Vitals: Assessment: Plan: * Treatment: * Images: * The named appointment provid er may or may not be the originator of this progress note, and it is not deemed complete until electronically signed by the appointment provider. Sign off status: Pending * Provider: Stephy Crane MD Date: 0 10/21/2024 Generated for Carey hewitt/Dina/Chapoitting on: 1 09/11/2024 12:54 PM EST
--- OUTSIDE RECORDS SUMMARY | 2024-11-24 05:00 | XMS_ITS ---
Author Organization Agapito Crane III, MD Address [address] [place] [address] Care Team Providers Care Manager Card Name Role Phone Dr. Agapito Crane III Primary Care Provider [phone] Allergies Allergen (clinical drug ingredient) Drug/Non Drug Allergy documented on EMR Reaction Allergy Type Onset Date Status No Known Drug Allergy Unknown Drug Allergy Active REASON FOR VISIT Zepbound weight loss program, Obesity, Sleep apnea, Depression, Tobacco dependence Medications Medication SIG (Take, Route, Frequency, Duration) Notes Start Date End Date Status Zepbound 2.5 MG/0.5ML 0.5 mL Subcutaneou s weekly 06/17/2024 Active Ondansetron 8 MG 1 tablet on the tong ue and allow to dissolve as needed Orally every four hours prn nausea 05/06/2023 Active Atorvastatin Calcium 10 MG 1 tablet Orally Once a day 03/03/2024 Active Omeprazole 20 MG TAKE 1 CAPSULE BY MO [facility] EVERY DAY Active valACYclovir HCl 500 MG TAKE 1 TABLET BY MOUTH EVERY DAY FOR 5 DAYS Active clonazePAM 0.5 MG TAKE 1 TABLET BY OSCAR TH EVERY DAY FOR 30 DAYS Orally Once a day 11/05/2024 Active amLODIPine Besylate 5 MG TAKE 1 TABLET B Y MOUTH EVERY DAY FOR 90 DAYS Oral Active Sertraline HCl 25 MG 1 tablet Orally Onc e a day 05/20/2024 Active FLUoxetine HCl 20 MG 1 capsule Orally On ce a day 02/27/2024 Active Zepbound 5 MG/0.5ML 0.5 mL Subcutaneous weekly for 28 days 11/24/2024 05/11/2025 Active Meclizine HCl 50 MG 1 tablet as needed O rally every 8 hrs prn vertigo 05/06/2023 Active Social History Tobacco Use: Social History Observation Description Date Details (start date - stop date) Current Smoker NA - NA Sex Assigned At : Social History Observation Description Sex Assigned At Female Tobacco Use/Smoking Question Answer Notes Patient is a current smoker Vital Signs Temperature 97.9 degrees Fahrenheit 11/25/19 25 Blood pressure systolic 135 mm Hg 11/25/19 25 Blood pressure diastolic 97 mm Hg 025 Heart Rate 69 /min 11/24/2024 Height 64 in 11/24/2024 Weight 191 lbs 11/24/2024 BMI 32.78 kg/m2 11/24/2024 Encounters Encounter Location Date Provider Diagnosis Agapito Crane III, MD [address] [place] [address] [place] [address] 11/24/2024 Agapito Crane Obesity (BMI 30.0-34.9) E66.9 ; Depression, unspecified depression type F32.9 ; Sleep apnea, unspecified type G47.30 and Tobacco dependence F17.200 Assessments Encounter Date Diagnosis (ICD Code) Assessment Notes Treatment Notes Treatment Clinical Notes 11/24/2024 Obesity (BMI 30.0-34.9) (ICD-10 - E66.9) Her medicationHer medication was kept at the same dose. She has lost 4 pounds. He is having no side effects. She will return in one month. 11/24/2024 Depression, unspecified depression type (ICD-10 - F32.9) She continues on the sertraline. She has had no side effects. 11/24/2024 Sleep apnea, unspecified type (ICD-10 - G47.30) She denies any daytime somnolence and says she is happy with her current state of affairs. 11/24/2024 Tobacco dependence (ICD-10 - F17.200) We have [...] Name Sig Start Date Stop Date Notes Zepbound 2.5 MG/0.5ML 0.5 mL Subcutaneous weekly 4 Ondansetron 8 MG 1 tablet on the tong ue and allow to dissolve as needed Orally every four hours prn nausea 05/06/2023 Atorvastatin Calcium 10 MG 1 tablet Orally Once a day 10/2023 Omeprazole 20 MG TAKE 1 CAPSULE BY MO [facility] EVERY DAY valACYclovir HCl 500 MG TAKE 1 TABLET BY MOUTH EVERY DAY FOR 5 DAYS clonazePAM 0.5 MG TAKE 1 TABLET BY OSCAR EVERY DAY FOR 30 DAYS Orally Once a day 11/05/2024 amLODIPine Besylate 5 MG TAKE 1 TABLET B Y MOUTH EVERY DAY FOR 90 DAYS Oral Sertraline HCl 25 MG 1 tablet Orally Once a day 05/20/2024 FLUoxetine HCl 20 MG 1 capsule Orally Once a day 4 Zepbound 5 MG/0.5ML 0.5 mL Subcutaneous weekly for 28 days 11/24/2024 05/11/2025 Meclizine HCl 50 MG 1 tablet as needed O rally every 8 hrs prn vertigo 05/06/2023 Next Appt Details Follow Up: 4 Weeks, Reason: Office visit Provider Name:Agapito Crane , 08/09/2025 09:30:00 AM, [address] [place] [address] [address], [place], [address], Provider Name:Agapito Crane , 03/02/2026 10:00:00 AM, [address] [place] [address] [address], [place], [address], Progress Notes * DIONI OHDOB:1960 (64 yo F)Acc No.[id number]:11/24/2024 Progress Notes Patient: DIONI LIRA Provider: Stephy Crane MD :1960 A ge:64 Y S ex:Female Date:11/24/2024 Address:[address] [place] [address] [place], [id number] Subjective: * Chief Complaints: * Z epbound weight loss programObesitySleep apneaDepressionTobacco dependence * HPI: C OVID-19 Screening: She has lost 4 more pounds this month. She is having no difficulty with the injections. Her dose was kept the same and a follow-up visit in one month was arranged. She has had no side effects from medication. Questions H ave you had any new onset fever, chills, cough, congestion, sore throat, shortness of breath, muscle aches? N o * ROS: G eneral/Constitutional: pain o nly normal aches and pains. C hills d enies.?Fatigue a dmits. F ever d enies. E NT: Decreased hearing d enies. R espiratory: Cough d enies. C ardiovascular: Chest pain with exertion N one since last visit. D yspnea on exertion d enies. S hortness of breath d enies. G astrointestinal: Constipation d enies. D ecreased appetite d enies.?Diarrhea d enies. H eartburn d enies. N ausea d enies. R ectal bleeding?denies. V omiting d enies. 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 She works 80 hours per week. She is with no children. She lives in [place]. {'Smoking': 'Yes'} Smoking - Reduced to 3 cigarettes a day. * Medications: T akingOmeprazole 20 MG Capsule Delayed Release TAKE 1 CAPSULE BY MOUTH EVERY DAY Atorvastatin Calcium 10 MG Tablet 1 tablet Orally Once a day Ondansetron 8 MG Tablet Disintegrating 1 tablet on the tongue and allow to dissolve as needed Orally every four hours prn nausea Meclizine HCl 50 MG Tablet 1 tablet as needed Orally every 8 hrs prn vertigo FLUoxetine HCl 20 MG Capsule 1 capsule Orally Once a day Sertraline HCl 25 MG Tablet 1 tablet Orally Once a day amLODIPine Besylate 5 MG Tablet TAKE 1 TABLET BY MOUTH EVERY DAY FOR 90 DAYS Oral Zepbound 2.5 MG/0.5ML Solution Auto-injector 0.5 mL Subcutaneous weekly valACYclovir HCl 500 MG Tablet TAKE 1 TABLET BY MOUTH EVERY DAY FOR 5 DAYS clonazePAM 0.5 MG Tablet TAKE 1 TABLET BY MOUTH EVERY DAY FOR 30 DAYS Orally Once a day Medication List reviewed and reconciled with the patientTaking Omeprazole 20 MG Capsule Delayed Release TAKE 1 CAPSULE BY MOUTH EVERY DAY Taking Atorvastatin Calcium 10 MG Tablet 1 tablet Orally Once a day Taking Ondansetron 8 MG Tablet Disintegrating 1 tablet on the tongue and allow to dissolve as needed Orally every four hours prn nausea Taking Meclizine HCl 50 MG Tablet 1 tablet as needed Orally every 8 hrs prn vertigo Taking FLUoxetine HCl 20 MG Capsule 1 capsule Orally Once a day Taking Sertraline HCl 25 MG Tablet 1 tablet Orally Once a day Taking amLODIPine Besylate 5 MG Tablet TAKE 1 TABLET BY MOUTH EVERY DAY FOR 90 DAYS Oral Taking Zepbound 2.5 MG/0.5ML Solution Auto-injector 0.5 mL Subcutaneous weekly Taking valACYclovir HCl 500 MG Tablet TAKE 1 TABLET BY MOUTH EVERY DAY FOR 5 DAYS Taking clonazePAM 0.5 MG Tablet TAKE 1 TABLET BY MOUTH EVERY DAY FOR 30 DAYS Orally Once a day Medication List reviewed and reconciled with the patient * Allergies: N o Known Drug Allergyno[Allergies Verified] Objective: * Vitals: H t: 64, Wt: 191, BMI:32.78, BP: 135/97, HR: 69, Temp: 97.9, Ht-cm: 162.56, Wt-k.64. * Examination: G eneral Examination: GENERAL APPEARANCE: p argenis, well nourished, well developed, in no acute [...] PSYCH: a lert, oriented, mood depressed. ? Assessment: * Assessment: 1. O besity (BMI 30.0-34.9) - E66.9 (Primary) N otes :Her medicationHer medication was kept at the same dose. She has lost 4 pounds. He is having no side effects. She will return in one month. 2 . D epression, unspecified depression type [...] of continued smoking. I have recommended smoke [place] and the smoking cessation programs at the local hospitals. She will consider this. I have made her aware of the utility of nicotine patches and Chantix. She will consider these as well. Plan: * Treatment: 2. O thers Continue valACYclovir HCl Tablet, 500 MG, TAKE 1 TABLET BY MOUTH EVERY DAY FOR 5 DAYS; C ontinue Omeprazole Capsule Delayed Release, 20 MG, TAKE [...] tobacco use and urged to quit. 0 11/24/2024 Patient Lifestyle Goals P atient wants to quit Treatment Goals S et a quit date, Cut down by 1 cigarette a week Barriers S tress, Social smoker Self-Management Plan M aliza a plan to cut down number of cigarettes over time and set a date to work towards quitting * Follow Up: 4 Weeks (Reason: Office visit) * Images: * Sign off status: Completed true * Provider: Stephy Crane MD Date: 0 11/24/2024 Generated for Carey hewitt/Dina/Meghanransmitting on: 1 09/11/2024 12:54 PM EST History and Physical Notes * [...]
--- OUTSIDE RECORDS SUMMARY | 2024-12-28 05:45 | XMS_ITS ---
Author Organization Agapito Crane III, MD Address [address] [place] [address] Care Team Providers Care Professional Application Designer Name Role Phone Dr. Agapito Crane III Primary Care Provider Allergies Allergen (clinical drug ingredient) Drug/Non Drug Allergy documented on EMR Reaction Allergy Type Onset Date Status No Known Drug Allergy Unknown Drug Allergy Active REASON FOR VISIT Depression, Sleep apnea, Obesity, Tobacco dependence, Hyperlipidemia Medications Medication SIG (Take, Route, Frequency, Duration) Notes Start Date End Date Status Sertraline HCl 25 MG 1 tablet Orally Once a day Active FLUoxetine HCl 20 MG 1 capsule Orally On ce a day 02/27/2024 Active Zepbound 2.5 MG/0.5ML 0.5 mL Subcutaneous weekly 1 Active amLODIPine Besylate 5 MG TAKE 1 TABLET B Y MOUTH EVERY DAY FOR 90 DAYS Oral Activ e Zepbound 5 MG/0.5ML 0.5 mL Subcutaneous weekly Active Meclizine HCl 50 MG 1 tablet as needed O rally every 8 hrs prn vertigo 05/06/2023 Active Ondansetron 8 MG 1 tablet on [...] DAYS Orally Once a day 11/05/2024 Active Social History Tobacco Use: Social History Observation Description Date Details (start date - stop date) Current Smoker NA - NA Sex Assigned At : Social History Observation Description Sex Assigned At Female Tobacco Use/Smoking Question Answer Notes Patient is a current smoker Problems Problem Type SNOMED Code ICD Code Onset Dates Problem Status W/U Status Risk Notes Problem [id number] Essential hypertension (I10) Active confirmed She has stopped her lisinopril. I have prescribed Metoprolol succinate 25 mg daily and we'll titrate the dose. Her blood pressure is somewhat improved. She will be seen in the near future should has not improved further the metoprolol dose will be increased. Vital Signs Temperature 98.1 degrees Fahrenheit 12/29/19 25 Blood pressure systolic 145 mm Hg 12/29/19 25 Blood pressure diastolic 89 mm Hg 025 Heart Rate 74 /min 12/28/2024 Height 64 in 12/28/2024 Weight 185 lbs 12/28/2024 BMI 31.75 kg/m2 12/28/2024 Encounters Encounter Location Date Provider Diagnosis Agapito Crane III, MD [address] [place] [address] [place] [address] 12/28/2024 Agapito Crane Obesity (BMI 30.0-34 .9) E66.9 ; Depression, unspecified depression type F32.9 ; Sleep apnea, unspecified type G47.30 ; Tobacco dependence F17.200 ; Hyperlipidemia, unspecified hyperlipidemia type E78.5 and Essential hypertension I10 Assessments Encounter Date Diagnosis (ICD Code) Assessment Notes Treat ment Notes Treatment Clinical Notes 12/28/2024 Obesity (BMI 30.0-34.9) (ICD-10 - E66.9) Her medication was kept at the same dose. She has lost 6 pounds. She is having no side effects. She will return in one month. 12/28/2024 Depression, unspecified depression type (ICD-10 - F32.9) She continues on the sertraline. She has had no side effects. 12/28/2024 Sleep apnea, unspecified type (ICD-10 - G47.30) She denies any daytime somnolence and says she is happy with her current state of affairs. 12/28/2024 Tobacco dependence (ICD-10 - F17.200) We have reviewed all of the health consequences of continued smoking. I have recommended smoke [place] and the smoking cessation programs at the local hospitals. She will consider this. I have made her aware of the utility of nicotine patches and Chantix. She will consider these as well. 12/28/2024 Hyperlipidemia, unspecified hyperlipidemia type (ICD-10 - E78.5) She has stopped taking her a atorvastatin stating that she does not wish to take medication. I discussed this with her at length and she persisted in this decision. 12/28/2024 Essential hypertension (ICD-10 - I10) Her blood pressure was elevated today. She has not been taking the amlodipine. She declined to take any blood pressure medication today. She says she does not wish to take medication. She persisted in this decision after a long discussion with me today about the pros and cons of treating hypertension. It is hoped that weight loss will bring the pressure down. We discussed sodium restriction today. We discussed lifestyle modifications today. Plan Of Treatment Medication Medication Name Sig Start Date Stop Date Notes Sertraline HCl 25 MG 1 tablet Orally Once a day 05/20/2024 FLUoxetine HCl 20 MG 1 capsule Orally Once a day 4 Zepbound 2.5 MG/0.5ML 0.5 mL Subcutaneous weekly 4 amLODIPine Besylate 5 MG TAKE 1 TABLET B Y MOUTH EVERY DAY FOR 90 DAYS Oral Zepbound 5 MG/0.5ML 0.5 mL Subcutaneous weekly 11/24/2024 Meclizine HCl 50 MG 1 tablet as needed O rally every 8 hrs prn vertigo 05/06/2023 Ondansetron 8 MG 1 tablet on the tong ue and allow to dissolve as needed Orally every four hours prn nausea 05/06/2023 Atorvastatin Calcium 10 MG 1 tablet Orally Once a day 10/2023 Omeprazole 20 MG TAKE 1 CAPSULE BY MO UTH EVERY DAY valACYclovir HCl 500 MG TAKE 1 TABLET BY MOUTH EVERY DAY FOR 5 DAYS clonazePAM 0.5 MG TAKE 1 TABLET BY OSCAR TH EVERY DAY FOR 30 DAYS Orally Once a day 11/05/2024 Next Appt Details Follow Up: 4 Weeks, Reason: ov no tests Provider Name:Agapito Crane , 08/09/2025 09:30:00 AM, [address] [place] [address] [address], [place], [address], Provider Name:Agapito Crane , 03/02/2026 10:00:00 AM, [address] [facility] [address], [place], [address], Progress Notes * DIONI FARMERDOB:1960 (64 yo F)Acc No.[id number]:12/28/2024 Progress Notes Patient: DIONI LIRA Provider: Stephy Carne MD :1960 A ge:64 Y S ex:Female Date:12/28/2024 Address:[address] [place] [address] , [id number] Subjective: * Chief Complaints: * D epressionSleep apneaObesityTobacco dependenceHyperlipidemia * HPI: C OVID-19 Screening: S he is on a weight loss regimen that includes zap pound 5 mg weekly by injection within the boundaries that she sets forming.She has lost 6 pounds since her last visit. She is quite happy with the medication and has had no side effects. She has an elevated lipid profile and has been prescribed today. Atorvastatin with good results. However, today, she told me she has stopped taking that medication because she does not desire to take any medication. She declined to resume it. After a long discussion. Also, she is not taking her amlodipine for high blood pressure. She said that she does not want to take any medication. She did not agree to resume them amlodipine domain architect a substitute for either of these 2 medications which she has stopped. She will continue to come to the office once a month to be weight and have her vital signs measured. I will try to give her statin IK care. Questions H ave you had any new onset fever, chills, cough, congestion, sore throat, shortness of breath, muscle aches? N o * ROS: G eneral/Constitutional: pain o nly normal aches and pains. C hills d enies.?Fatigue a dmits. F ever d enies. E NT: Decreased hearing d enies. R espiratory: Cough n on-productive. C ardiovascular: Chest pain with exertion d enies. D yspnea on exertion?denies. S hortness of breath d enies. G astrointestinal: Constipation o ccasional. D ecreased appetite d enies. D iarrhea d enies. H eartburn o ccasional. N ausea d enies. R ectal bleeding d enies. V omiting d enies. H ematology: bruising d enies. p etechiae d enies. S wollen glands n one have been noted. G enitourinary: Frequent urination d enies. M usculoskeletal: Muscle aches d enies. P ainful joints d enies. S ciatica d enies. W eakness d enies. S kin: Itching d enies. R karen d enies. S kin lesion(s)?denies. N eurologic: Difficulty speaking d enies. D izziness d enies.?Headache d enies. L ow back pain d enies. P sychiatric: Depressed mood d enies. 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 She works 80 hours per week. She is with no children. She lives in [place]. {'Smoking': 'Yes'} Smoking - Reduced to 3 cigarettes a day. * Medications: T akingclonazePAM 0.5 MG Tablet TAKE 1 TABLET BY MOUTH EVERY DAY FOR 30 DAYS Orally Once a day valACYclovir HCl 500 MG Tablet TAKE 1 TABLET BY MOUTH EVERY DAY FOR 5 DAYS Omeprazole 20 MG Capsule Delayed Release TAKE 1 CAPSULE BY MOUTH EVERY DAY Sertraline HCl 25 MG Tablet 1 tablet Orally Once a day Zepbound 5 MG/0.5ML Solution Auto-injector 0.5 mL Subcutaneous weekly , stop date 05/11/2025Taking clonazePAM 0.5 MG Tablet TAKE 1 TABLET BY MOUTH EVERY DAY FOR 30 DAYS Orally Once a day Taking valACYclovir HCl 500 MG Tablet TAKE 1 TABLET BY MOUTH EVERY DAY FOR 5 DAYS Taking Omeprazole 20 MG Capsule Delayed Release TAKE 1 CAPSULE BY MOUTH EVERY DAY Taking Sertraline HCl 25 MG Tablet 1 tablet Orally Once a day Taking Zepbound 5 MG/0.5ML Solution Auto-injector 0.5 mL Subcutaneous weekly , stop date 05/11/2025Not-Taking/PRNAtorvastatin Calcium 10 MG Tablet 1 tablet Orally Once a day Ondansetron 8 MG Tablet Disintegrating 1 tablet on the tongue and allow to dissolve as needed Orally every four hours prn nausea Meclizine HCl 50 MG Tablet 1 tablet as needed Orally every 8 hrs prn vertigo FLUoxetine HCl 20 MG Capsule 1 capsule Orally Once a day amLODIPine Besylate 5 MG Tablet TAKE 1 TABLET BY MOUTH EVERY DAY FOR 90 DAYS Oral Not-Taking/PRN Atorvastatin Calcium 10 MG Tablet 1 tablet Orally Once a day Not-Taking/PRN Ondansetron 8 MG Tablet Disintegrating 1 tablet on the tongue and allow to dissolve as needed Orally every four hours prn nausea Not-Taking/PRN Meclizine HCl 50 MG Tablet 1 tablet as needed Orally every 8 hrs prn vertigo Not-Taking/PRN FLUoxetine HCl 20 MG Capsule 1 capsule Orally Once a day Not-Taking/PRN amLODIPine Besylate 5 MG Tablet TAKE 1 TABLET BY MOUTH EVERY DAY FOR 90 DAYS Oral DiscontinuedZepbound 2.5 MG/0.5ML Solution Auto-injector 0.5 mL Subcutaneous weekly Medication List reviewed and reconciled with the patientDiscontinued Zepbound 2.5 MG/0.5ML Solution Auto-injector 0.5 mL Subcutaneous weekly Medication List reviewed and reconciled with the patient * Allergies: N o Known Drug Allergyno[Allergies Verified] Objective: * Vitals: H t: 64, Wt: 185, BMI:31.75, BP: 145/89, HR: 74, Temp: 98.1, Ht-cm: 162.56, Wt-k.91. * Examination: G eneral Examination: GENERAL APPEARANCE: [...] normal, no s3, or vascular bruits. LUNGS: , diminished breath sounds throughout, good air movement. BREASTS: no masses palpable bilaterally. ABDOMEN: b owel sounds normal, no ascites, no organomegaly, no mass, centripital obesity. RECTAL EXAM: n ot examined. MUSCULOSKELETAL: e xtremities unremarkable, no clubbing, cyanosis or edema. PERIPHERAL PULSES: n ormal. NEUROLOGIC: a lert and oriented, cranial nerves 2-12 grossly intact, deep tendon reflexes 2+ symmetrical, motor strength normal upper and lower extremities, sensory exam intact. PSYCH: a lert, oriented, anxious appearing. ? Assessment: * Assessment: 1. O besity (BMI 30.0-34.9) - E66.9 (Primary) N otes :Her medication was kept at the same dose. She has lost 6 pounds. She is having no side effects. She will [...] unspecified hyperlipidemia type - E78.5 N otes :She has stopped taking her a atorvastatin stating that she does not wish to take medication. I discussed this with her at length and she persisted in this decision. 6 . E ssential hypertension - I10 N otes :Her blood pressure was elevated today. She has not been taking the amlodipine. She declined to take any blood pressure medication today. She says she does not wish to take medication. She persisted in this decision after a long discussion with me today about the pros and cons of treating hypertension. It is hoped that weight loss will bring the pressure down. We discussed sodium restriction today. We discussed lifestyle modifications today. Plan: * Treatment: 2. O thers Continue [...] tobacco use and urged to quit. 0 12/28/2024 Patient Lifestyle Goals P atient wants to quit Treatment Goals S et a quit date, Cut down by 1 cigarette a week Barriers S tress, Social smoker Self-Management Plan M aliza a plan to cut down number of cigarettes over time and set a date to work towards quitting . * Follow Up: 4 Weeks (Reason: ov no tests) * Images: * Sign off status: Completed true * Provider: Stephy Crane MD Date: 0 12/28/2024 Generated for Printi ng/Faliamg/eTransmitting on: 1 09/11/2024 12:53 PM EST History and Physical [...] normal, no s3, or vascular bruits LUNGS: , diminished breath sounds throughout, good air movement ABDOMEN: bowel sounds normal, no ascites, no organomegaly, no mass, centripital obesity NEUROLOGIC: alert and oriented, cranial nerves 2-12 grossly intact, deep tendon reflexes 2+ symmetrical, motor strength normal upper and lower extremities, sensory exam intact SKIN: no suspicious lesion s, anicteric PERIPHERAL PULSES: normal BREASTS: no masses palpable b ilaterally MUSCULOSKELETAL: extremities unremark able, no clubbing, cyanosis or edema LYMPH NODES: no enlarged lymph no stefanie,spleen normal RECTAL EXAM: not examined PSYCH: alert, oriented, anx ious appearing ORAL CAVITY: normal, unremarkable
--- OUTSIDE RECORDS SUMMARY | 2025-01-25 05:45 | XMS_ITS ---
Author Organization Agapito Crane III, MD Address [address] [place] [address] Care Team Providers Care Flight Test Supervisor Name Role Phone Dr. Agapito Crane III Primary Care Provider [phone] Allergies Allergen (clinical drug ingredient) Drug/Non Drug Allergy documented on EMR Reaction Allergy Type Onset Date Status No Known Drug Allergy Unknown Drug Allergy Active REASON FOR VISIT Depression, Dizzy spells, Headache, Sleep apnea, Obesity, Tobacco dependence, Hyperlipidemia, Hypertension Medications Medication SIG (Take, Route, Frequency, Duration) Notes Start Date End Date Status Zepbound 2.5 MG/0.5ML 0.5 mL Subcutaneous weekly 1 Active Zepbound 5 MG/0.5ML 0.5 mL Subcutaneous weekly Active amLODIPine Besylate 5 MG TAKE 1 TABLET B Y MOUTH EVERY DAY FOR 90 DAYS Oral Activ e Meclizine HCl 50 MG 1 tablet as needed O rally every 8 hrs prn vertigo 05/06/2023 Active Ondansetron 8 MG 1 tablet on the tong ue and allow to dissolve as needed Orally every four hours prn nausea 05/06/2023 Active Sertraline HCl 25 MG 1 tablet Orally Once a day Active FLUoxetine HCl 20 MG 1 capsule Orally On ce a day 02/27/2024 Active clonazePAM 0.5 MG 1 tablet Orally Once a day 12/31 Active Omeprazole 20 MG TAKE 1 CAPSULE BY [facility] EVERY DAY Active valACYclovir HCl 500 MG TAKE 1 TABLET BY MOUTH EVERY DAY FOR 5 DAYS Active Lisinopril 5 MG 1 tablets Orally Onc e a day for 30 days 01/25/2025 Active Atorvastatin Calcium 10 MG 1 tablet Orally Once a day 03/03/2024 Active Social History Tobacco Use: Social History Observation Description Date Details (start date - stop date) Current Smoker NA - NA Sex Assigned At : Social History Observation Description Sex Assigned At Female Tobacco Use/Smoking Question Answer Notes Patient is a current smoker Vital Signs Temperature 98.0 degrees Fahrenheit 01/26/20 25 Heart Rate 72 /min 01/25/2025 Height 64 in 01/25/2025 Weight 185 lbs 01/25/2025 BMI 31.75 kg/m2 01/25/2025 Encounters Encounter Location Date Provider Diagnosis Agapito Crane III, MD [address] [place] [address] [place] [address] 01/25/2025 Agapito Crane Obesity (BMI 30.0-34 .9) E66.9 ; Essential hypertension I10 ; Dizziness R42 ; Atypical chest pain R07.89 ; Depression, unspecified depression type F32.9 ; Sleep apnea, unspecified type G47.30 ; Tobacco dependence F17.200 and Hyperlipidemia, unspecified hyperlipidemia type E78.5 Assessments Encounter Date Diagnosis (ICD Code) Assessment Notes Treat ment Notes Treatment Clinical Notes 01/25/2025 Obesity (BMI 30.0-34.9) (ICD-10 - E66.9) Her weight has been stable. The Zepbound was continued at the current dose. She will be seen once a month. 01/25/2025 Essential hypertension (ICD-10 - I10) Her blood [...] 5 mg of lisinopril and I prescribed. 01/25/2025 Dizziness (ICD-10 - R42) The cause for this is unclear. Her cardiovascular exam today was within normal limits. I have given her 5 mg of lisinopril to lower the blood pressure. 01/25/2025 Atypical chest pain (ICD-10 - R07.89) She denies having any chest pain since her last visit. 01/25/2025 Depression, unspecified depression type (ICD-10 - F32.9) She continues on the sertraline. She has had no side effects. 01/25/2025 Sleep apnea, unspecified type (ICD-10 - G47.30) She denies any daytime somnolence and says she is happy with her current state of affairs. 01/25/2025 Tobacco dependence (ICD-10 - F17.200) We have reviewed all of the health consequences of continued smoking. I have recommended smoke [place] and the smoking cessation programs at the local hospitals. She will consider this. I have made her aware of the utility of nicotine patches and Chantix. She will consider these as well. 01/25/2025 Hyperlipidemia, unspecified hyperlipidemia type (ICD-10 - E78.5) She has stopped taking her a atorvastatin stating that she does not wish to take medication. I discussed this with her at length and she persisted in this decision. Plan Of Treatment Medication Medication Name Sig Start Date Stop Date Notes Zepbound 2.5 MG/0.5ML 0.5 mL Subcutaneous weekly Zepbound 5 MG/0.5ML 0.5 mL Subcutaneous weekly 11/24/2024 amLODIPine Besylate 5 MG TAKE 1 TABLET B Y MOUTH EVERY DAY FOR 90 DAYS Oral Meclizine HCl 50 MG 1 tablet as needed O rally every 8 hrs prn vertigo 05/06/2023 Ondansetron 8 MG 1 tablet on the tong ue and allow to dissolve as needed Orally every four hours prn nausea 05/06/2023 Sertraline HCl 25 MG 1 tablet Orally Once a day 05/20/2024 FLUoxetine HCl 20 MG 1 capsule Orally Once a day clonazePAM 0.5 MG 1 tablet Orally Once a day 12/31/2024 Omeprazole 20 MG TAKE 1 CAPSULE BY [facility] EVERY DAY valACYclovir HCl 500 MG TAKE 1 TABLET BY MOUTH EVERY DAY FOR 5 DAYS Lisinopril 5 MG 1 tablets Orally Onc e a day for 30 days 01/25/2025 Atorvastatin Calcium 10 MG 1 tablet Orally Once a day 07/0 10/2023 Pending Test Test Name Order Date PROFILE, RANDOM (COMPREHENSIVE METABOLIC ) 01/25/2025 CBC w DIFF 01/25/2025 ECG 7 day holter monitor 01/25/2025 Next Appt Details Follow Up: As Scheduled, Mariia son: Annual Exam Provider Name:Agapito Morganrne , 08/09/2025 09:30:00 AM, [address] [facility] [place], [place], [address], Provider Name:Agapito Barragan Royce , 03/02/2026 10:00:00 AM, [address] [facility] [place], [place], [address], Progress Notes * DIONI OHDOB:1960 (64 yo F)Acc No.[id number]:01/25/2025 Progress Notes Patient: DIONI LIRA Provider: Stephy Crane MD :1960 A ge:64 Y S ex:Female Date:01/25/2025 Address:[address] [place] [address] [facility] Subjective: * Chief Complaints: * D epressionDizzy spellsHeadacheSleep apneaObesityTobacco dependenceHyperlipidemiaHypertension * HPI: C OVID-19 Screening: She returns for management of her medical issues. She says she has been having dizzy spells lately associated with a headache over the last 7 days Her blood pressure has been elevated recently lately. Today he was 40/79. We are long discussion about lowering it and she agreed after a long discussion to take 5 mg of lisinopril daily. This was prescribed in a follow-up visit was given to her. She continues to need her clonazepam and I have refilled at another time.She admits to stress eating. Her weight is stable. I have continued Zepbound at the current dose monthly follow-up visits. Questions H ave you had any new [...] with exertion d enies. D yspnea on exertion?with prolonged activity. S hortness of breath d enies. 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 She is with no children. She lives in [place]. {'Smoking': 'Yes'} Smoking - Reduced to 3 cigarettes a day. * Medications: T akingvalACYclovir HCl 500 MG Tablet TAKE 1 TABLET [...] MG/0.5ML Solution Auto-injector 0.5 mL Subcutaneous weekly clonazePAM 0.5 MG Tablet 1 tablet Orally Once a day Taking valACYclovir HCl [...] a day Taking Zepbound 5 MG/0.5ML Solution Auto- injector 0.5 mL Subcutaneous weekly Taking clonazePAM 0.5 MG Tablet 1 tablet Orally Once a day DiscontinuedFLUoxetine HCl 20 MG Capsule 1 capsule Orally Once a day amLODIPine Besylate 5 MG Tablet TAKE 1 TABLET BY MOUTH EVERY DAY FOR 90 DAYS Oral Zepbound 2.5 MG/0.5ML Solution Auto-injector 0.5 mL Subcutaneous weekly Medication List reviewed and reconciled with the patientDiscontinued FLUoxetine HCl 20 MG Capsule 1 capsule Orally Once a day Discontinued amLODIPine Besylate 5 MG Tablet TAKE 1 TABLET BY MOUTH EVERY DAY FOR 90 DAYS Oral Discontinued Zepbound 2.5 MG/0.5ML Solution Auto- injector 0.5 mL Subcutaneous weekly Medication List reviewed and reconciled with the patient * Allergies: N o Known Drug Allergyno[Allergies Verified] Objective: * Vitals: H t: 64, Wt: 185, BMI:31.75, BP: 91620, HR: 72, Temp: 98.0, Ht-cm: 162.56, Wt-k.91. * Examination: G eneral [...] lower extremities, sensory exam intact. PSYCH: a nxious appearing, judgement and insight good, good eye contact, cooperative with exam, cognitive function intact, alert, oriented, speech clear, thought process logical, goal directed, anxious appearing, mood depressed. Assessment: * Assessment: 1. E ssential hypertension - I10 (Primary) N otes :Her blood pressure was elevated [...] 5 mg of lisinopril and I prescribed. 2 . O besity (BMI 30.0-34.9) - E66.9 N otes :Her weight has been stable. The Zepbound was continued at the current dose. She will be seen once a month. 3 . D izziness - R42 N otes :The cause for this is unclear. Her cardiovascular exam today was within normal limits. I have given her 5 mg of lisinopril to lower the blood pressure. 4 . A typical chest pain - R07.89 N otes :She denies having any chest pain since her last visit. 5 . D epression, unspecified depression type - F32.9 N otes :She continues on the sertraline. She has had no side effects. 6 . S leep apnea, unspecified type - G47.30 N otes :She denies any daytime somnolence and says she is happy with her current state of affairs. 7 . T obacco dependence - F17.200 N otes :We have reviewed all of the health consequences of continued smoking. I have recommended smoke [place] and the smoking cessation programs at the local hospitals. She will consider this. I have made her aware of the utility of nicotine patches and Chantix. She will consider these as well. 8 . H yperlipidemia, unspecified hyperlipidemia type - E78.5 N otes :She has stopped taking her a atorvastatin stating that she does not wish to take medication. I discussed this with her at length and she persisted in this decision. Plan: * Treatment: 2. D izziness I maging: ECG 7 day holter monitor 3. A typical chest pain I maging: ECG 7 day holter monitor 4. O thers Continue valACYclovir HCl Tablet, 500 [...] tobacco use and urged to quit. 0 01/25/2025 * Follow Up: A s Scheduled (Reason: Annual Exam) * Images: * Sign off status: Completed true * Provider: Stephy Crane MD Date: 0 01/25/2025 Generated for Meghanni marcelina/Dina/eTransmitting on: 1 09/11/2024 12:55 PM EST History and Physical [...] stefanie,spleen normal RECTAL EXAM: not examined PSYCH: anxious appearing, j udgement and insight good, good eye contact, cooperative with exam, cognitive function intact, alert, oriented, speech clear, thought process logical, goal directed, anxious appearing, mood depressed ORAL CAVITY: normal, unremarkable
--- OUTSIDE RECORDS SUMMARY | 2025-01-31 08:27 | XMS_ITS ---
Author Organization Agapito Carne III, MD Address [address] [place] [address] [place] [address] Care Team Providers Care Shirring Machine Operator Automatic Name Role Phone Dr. Agapito Crane III Primary Care Provider REASON FOR VISIT Holter Monitor Social History Sex Assigned At : Social History Observation Description Sex Assigned At Female Encounters Encounter Location Date Provider Diagnosis Agapito Crane III, MD [address] [place] [address] [place] [address] 01/31/2025 Agapito Crane Atypical chest pain R07.89 and Dizziness R42 Assessments Encounter Date Diagnosis (ICD Code) Assessment Notes Treatment Notes Treatment Clinical Notes 01/31/2025 Atypical chest pain (ICD-10 - R07.89) 01/31/2025 Dizziness (ICD-10 - R42) Plan Of Treatment Pending Test Test Name Order Date ECG holter monitor 48 hour 01/31/2025 Next Appt Details Provider Name:Agapito Crane , 08/09/2025 09:30:00 AM, [address] [place] [address] [place], [address], Provider Name:Agapito Crane , 03/02/2026 10:00:00 AM, [address] [place] [address] [place], [address], Progress Notes * DIONI OHDOB:1960 (65 yo F)Acc No.[id number]:01/31/2025 Patient: DIONI LIRA :1960 A ge:64 Y S ex:Female Address:[address] [place] [address] , [place], [address] Subjective: * Chief Complaints: * H olter Monitor * Medical History: * Surgical History: * Hospitalization/Major Diagno stic Procedure: * Medications: Objective: * Vitals: * Physical Examination: Assessment: * Assessment: 1. A typical chest pain - R07.89 2 . D izziness - R42 Plan: * Treatment: 2. D maggie I maging: ECG holter monitor 48 hour * Procedure Codes: * true * Date: Generated for Carey hewitt/Dina/Mychalsmitting on: 09/11/2024 12:53 PM EST
--- OUTSIDE RECORDS SUMMARY | 2025-02-28 05:00 | XMS_ITS ---
Author Organization Agapito Crane III, MD Address [address] [place] [address] Care Team Providers Care Talent Acquisition Program Manager Name Role Phone Dr. Agapito Crane III Primary Care Provider Allergies Allergen (clinical drug ingredient) Drug/Non Drug Allergy documented on EMR Reaction Allergy Type Onset Date Status No Known Drug Allergy Unknown Drug Allergy Active No Known Food Allergy Unknown Drug Allergy Active REASON FOR VISIT annual exam Medications Medication SIG (Take, Route, Frequency, Duration) Notes Start Date End Date Status Sertraline HCl 25 MG 1 tablet Orally Once a day 05/20/2024 Active amLODIPine Besylate 5 MG TAKE 1 TABLET BY MOUTH EVERY DAY FOR 90 DAYS Oral Active Meclizine HCl 50 MG 1 tablet as needed Orally every 8 hrs prn vertigo 05/06/2023 Active FLUoxetine HCl 20 MG 1 capsule Orally Once a day 02/27/2024 Active Metoprolol Succinate ER 25 MG 1 tablet Orally Once a day for 30 days 02/28/2025 Active Atorvastatin Calcium 10 MG 1 tablet Orally Once a day 03/03/2024 Active Ondansetron 8 MG 1 tablet on the tongue and allow to dissolve as needed Orally every four hours prn nausea 05/06/2023 Active Omeprazole 20 MG TAKE 1 CAPSULE BY MOUTH EVERY DAY Active clonazePAM 0.5 MG 1 tablet Orally Once a day 12/31/2024 Active valACYclovir HCl 500 MG TAKE 1 TABLET BY MOUTH EVERY DAY FOR 5 DAYS Active Zepbound 5 MG/0.5ML 0.5 mL Subcutaneous weekly 11/24/2024 Active clonazePAM 0.5 MG one half tablet Orally Once a day for 30 days 02/28/2025 Active Lisinopril 5 MG 1 tablets Orally Once a day for 30 days Pt stop the medication due to side effects 01/25/2025 02/14/2025 Not-Taking Zepbound 2.5 MG/0.5ML 0.5 mL Subcutaneous weekly for 28 days 02/28/2025 01/30/2026 Active Metoprolol Succinate 25 MG 1 capsule Orally Once a day for 30 days This medication was stopped at the pharmacy and corrected RX sent to pharmacy 02/28/2025 Active Social History Tobacco Use: Social History Observation Description Date Details (start date - stop date) Current Smoker NA - NA Sex Assigned At : Social History Observation Description Sex Assigned At Female Tobacco Control (Standard) Question Answer Notes Tobacco use: Current smoker How often do you smoke cigarettes? Every day How many cigarettes a day do you smoke? 5 or les s How soon after you wake up d o you smoke your first cigarette? Within 5 minutes Are you interested in quitting? Thinking about q uitting Additional Findings: Tobacco user Light cigarett e smoker (1-9 cigs/day) AUDIT-C (Standard) Question Answer Notes Did you have a drink containing alcohol in the p ast year? No Points 0 Interpretation Negative Vital Signs Temperature 98.3 degrees Fahrenheit 02/29/20 25 Blood pressure systolic 153 mm Hg 02/29/20 25 Blood pressure diastolic 88 mm Hg 025 Heart Rate 59 /min 02/28/2025 Height 64 in 02/28/2025 Weight 185 lbs 02/28/2025 BMI 31.75 kg/m2 02/28/2025 Encounters Encounter Location Date Provider Diagnosis Agapito Crane III, MD [address] [place] [address] [place] [id number] 02/28/2025 Agapito Crane Obesity (BMI 30.0-34 .9) E66.9 ; Tobacco dependence F17.200 ; Depression, unspecified depression type F32.9 ; Sleep apnea, unspecified type G47.30 ; Hyperlipidemia, unspecified hyperlipidemia type E78.5 ; Essential hypertension I10 and Vitamin D deficiency, unspecified E55.9 Assessments Encounter Date Diagnosis (ICD Code) Assessment Notes Treat ment Notes Treatment Clinical Notes 02/28/2025 Obesity (BMI 30.0-34.9) (ICD-10 - E66.9) Her weight has been stable. The Zepbound dose was increased. She will be seen once a month. 02/28/2025 Tobacco dependence (ICD-10 - F17.200) We have reviewed all of the health consequences of continued smoking. I have recommended smoke [facility] and the smoking cessation programs at the local hospitals. She will consider this. I have made her aware of the utility of nicotine patches and Chantix. She will consider these as well. 02/28/2025 Depression, unspecified depression type (ICD-10 - F32.9) She continues on the sertraline. She has had no side effects.She wants to taper off the clonazepam and we have begun this process today. 02/28/2025 Sleep apnea, unspecified type (ICD-10 - G47.30) She denies any daytime somnolence and says she is happy with her current state of affairs. 02/28/2025 Hyperlipidemia, unspecified hyperlipidemia type (ICD-10 - E78.5) She has stopped taking her a atorvastatin stating that she does not wish to take medication. I discussed this with her at length and she persisted in this decision. 02/28/2025 Essential hypertension (ICD-10 - I10) She has stopped her lisinopril. I have prescribed Metoprolol succinate 25 mg daily and we'll titrate the dose. 02/28/2025 Vitamin D deficiency , unspecified (ICD-10 - E55.9) She was continued on vitamin D supplementation. I told her the appropriate dose would be 1000 units of vitamin D3. Plan Of Treatment Medication Medication Name Sig Start Date Stop Date Notes Sertraline HCl 25 MG 1 tablet Orally Onc e a day 05/20/2024 amLODIPine Besylate 5 MG TAKE 1 TABLET BY MOUTH EVERY DAY FOR 90 DAYS Oral Meclizine HCl 50 MG 1 tablet as needed Orally every 8 hrs prn vertigo 05/06/2023 FLUoxetine HCl 20 MG 1 capsule Orally On ce a day 02/27/2024 Metoprolol Succinate ER 25 MG 1 tablet Orally Once a day for 30 days 02/28/2025 Atorvastatin Calcium 10 MG 1 tablet Orally Once a day 03/03/2024 Ondansetron 8 MG 1 tablet on the tong ue and allow to dissolve as needed Orally every four hours prn nausea 05/06/2023 Omeprazole 20 MG TAKE 1 CAPSULE BY MOUTH EVERY DAY clonazePAM 0.5 MG 1 tablet Orally Once a day 12/31/2024 valACYclovir HCl 500 MG TAKE 1 TABLET BY MOUTH EVERY DAY FOR 5 DAYS Zepbound 5 MG/0.5ML 0.5 mL Subcutaneous weekly 11/24/2024 clonazePAM 0.5 MG one half tablet Oral ly Once a day for 30 days 02/28/2025 Zepbound 2.5 MG/0.5ML 0.5 mL Subcutaneou s weekly for 28 days 02/28/2025 01/30/2026 Metoprolol Succinate 25 MG 1 capsule Orally Once a day for 30 days 02/28/2025 This medication was stopped at the pharmacy and corrected RX sent to pharmacy Next Appt Details Follow Up: 2 Months, Reason: OV Provider Name:Agapito Crane , 08/09/2025 09:30:00 AM, [address] [place] [address] [address], [place], [phone], Provider Name:Agapito Crane , 03/02/2026 10:00:00 AM, [address] [place] [address] [address], [place], [phone], Progress Notes * DIONI 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 She returns for her annual visit. She stopped the recently prescribed lisinopril because of a cough. I have substituted valsartan today after a discussion of the risks and benefits and side effects. Her blood pressure was slightly elevated today. She informed me she wants to taper off of the clonazepam. The dose was reduced from 0.5 mg to 0.25 mg. She will break her current tablets in half until they are gone and then a new prescription was a 0.125 mg dose will be provided. She has had no chest pain and feels generally well. PHQ-9 L ittle interest or pleasure in doing things?More than half the days F eeling down, depressed, or hopeless M ore than half the days T rouble falling or staying asleep, or sleeping too much N early every day F eeling tired or having little energy N early every day P oor appetite or overeating S everal days F eeling bad about yourself or that you are a failure, or have let yourself or your family down N early every day T rouble concentrating on things, such as reading the newspaper or watching television M ore than half the days M oving or speaking so slowly that other people could have noticed; or the opposite, being so fidgety or restless that you have been moving around a lot more than usual N ot at all T houghts that you would be better off or of hurting yourself in some way N ot at all T otal Score 1 6 I nterpretation M oderately Severe Depression C OVID-19 Screening: Questions H ave you had any new onset fever, chills, cough, congestion, sore throat, shortness of breath, muscle aches? N o S TERRANCE Questions: SDOH Questions I n the past year have you been worried about losing your housing? N o I n the past year have you or any family members you live with been unable to get any of the following when it was really needed? Check all that apply: N one * ROS: G eneral/Constitutional: pain o nly normal aches and pains. C hills d enies.?Fatigue a dmits. F ever d enies. E NT: Decreased hearing d enies. R espiratory: Cough r esolved. C ardiovascular: Chest pain with exertion d [...] S iblings: alive. M aternal Grand Mother: , diagnosed with CVD, DM, HTN. 1 brother(s) - healthy. . A maternal grandmother was hypertensive with coronary artery disease and type 2 diabetes mellitus. Her brother is healthy and well. She has no children. She is not aware of any family history of substance use disorder, addiction, or mental illness. * Social History: T obacco Use: T obacco Control (Standard) T obacco use: C urrent smoker H ow often do you smoke cigarettes? E very day H ow many cigarettes a day do you smoke? 5 or less H ow soon after you wake up do you smoke your first cigarette? W ithin 5 minutes A re you interested in quitting? T hinking about quitting A dditional Findings: Tobacco user L ight cigarette smoker (1-9 cigs/day) D rugs/Alcohol: D rugs H ave you used drugs other than those for medical reasons in the past 12 months? N o D rug/Alcohol: A GEO-C (Standard) D id you have a drink containing alcohol in the past year? 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 She works 80 hours per week. She is with no children. She lives in [place]. {'Smoking': 'Yes'} Smoking - Reduced to 3 cigarettes a day. * Medications: T akingclonazePAM 0.5 MG Tablet 1 tablet Orally Once a day valACYclovir HCl 500 [...] FOR 90 DAYS Oral Zepbound 5 MG/0.5ML Solution Auto-injector 0.5 mL Subcutaneous weekly Taking clonazePAM 0.5 [...] DAY FOR 90 DAYS Oral Taking Zepbound 5 MG/0.5ML Solution Auto-injector 0.5 mL Subcutaneous weekly Not- Taking/PRNLisinopril 5 MG Tablet 1 tablets Orally Once a day , stop date 02/14/2025, Notes to Pharmacist: Pt stop the medication due to side effectsNot-Taking/PRN Lisinopril 5 MG Tablet 1 tablets Orally Once a day , stop date 02/14/2025, Notes to Pharmacist: Pt stop the medication due to side effectsDiscontinuedZepbound 2.5 MG/0.5ML Solution Auto-injector 0.5 mL Subcutaneous weekly Medication List reviewed and reconciled with the patientDiscontinued Zepbound 2.5 MG/0.5ML Solution Auto-injector 0.5 mL Subcutaneous weekly Medication List reviewed and reconciled with the patient * Allergies: N o Known Drug AllergyNo Known Food Allergyno[Allergies Verified] Objective: * Vitals: H t: 64, Wt: 185, BMI:31.75, BP: 153/88, HR: 59, Temp: 98.3, Ht-cm: 162.56, Wt-k.91. * P ast Orders: L ab:Comprehensive Met. Panel (Order Date - 02/23/2025) (Collection Date & Time - 02/23/2025 08:45 AM) Value Reference Range Sodium 141 135-145 - mmol/L Bilirubin Total 0.3 0.0-1.0 - mg/dL Aspartate Amino Transferase 25 5-31 - U/L Alanine Aminotransferase 40 H 0-31 - U/L Total Protein 6.9 6.5-8.0 - g/dL Albumin Level 4.5 3.5-5.0 - g/dL Alkaline Phosphatase 103 39-117 - U/L Potassium 4.5 3.3-5.1 - mmol/L Chloride 109 H 96-108 - mmol/L Carbon Dioxide 24 22-29 - mmol/L Anion Gap 13 12-20 - Blood Urea Nitrogen 14 9-16 - mg/dL Creatinine 1.01 0.5-1.4 - mg/dL Estimated Glomerular Filt Rate 55 - Glucose Random 90 60-115 - mg/dL Calcium 9.2 8.4-10.2 - mg/dL Lab:Complete Blood Count Aut o Diff * Collection Date 02/23/2025 03/03/2024 10/07/2023 Collection Time 08:45 AM 10:08 AM 09:00 AM Order Date 02/23/2025 03/03/2024 10/07/2023 White Blood Count 7.7 (Ref Range: 4.8-10.8 X10*3/uL) 8.4 (Ref Range: 4.8-10.8 X10*3/uL) 7.6 (Ref Range: 4.8-10.8 X10*3/uL) Red Blood Count 4.72 (Ref Range: 4.20-5.50 X10*6/uL) 4.81 (Ref Range: 4.20-5.50 X10*6/uL) 4.69 (Ref Range: 4.20-5.50 X10*6/uL) Hemoglobin 13.4 (Ref Range: 12.0-16.0 g/dl) 13.4 (Ref Range: 12.0-16.0 g/dl) 13.0 (Ref Range: 12.0-16.0 g/dl) Hematocrit 41.1 (Ref Range: 37.0-47.0 %) 41.6 (Ref Range: 37.0-47.0 %) 39.8 (Ref Range: 37.0-47.0 %) Mean Corpuscular Volume 87.1 (Ref Range: 80.0-98.0 fL) 86.5 (Ref Range: 80.0-98.0 fL) 84.9 (Ref Range: 80.0-98.0 fL) Mean Corpuscular Hemoglobin 28.4 (Ref Range: 27.0-33.0 pg) 27.9 (Ref Range: 27.0-33.0 pg) 27.7 (Ref Range: 27.0-33.0 pg) Mean Corpuscular HGB Conc 32.6 (Ref Range: 31.0-35.0 g/dl) 32.2 (Ref Range: 31.0-35.0 g/dl) 32.7 (Ref Range: 31.0-35.0 g/dl) Red Cell Distribution Width 13.4 (Ref Range: 11.0-16.0 %) 13.9 (Ref Range: 11.0-16.0 %) 13.7 (Ref Range: 11.0-16.0 %) Platelet Count 299 (Ref Range: 160-400 X10*3/uL) 327 (Ref Range: 160-400 X10*3/uL) 317 (Ref Range: 160-400 X10*3/uL) Mean Platelet Volume 10.2 (Ref Range: 9.4-12.3 fL) 10.2 (Ref Range: 9.4-12.3 fL) 10.3 (Ref Range: 9.4-12.3 fL) Neutrophils Percent Auto 50.4 (Ref Range: 45-73 %) 53.7 (Ref Range: 45-73 %) 50.7 (Ref Range: 45-73 %) Imm Gran Pct Auto 0.3 (Ref Range: 0.0-0.4 %) 0.2 (Ref Range: 0.0-0.4 %) 0.3 (Ref Range: 0.0-0.4 %) Lymphocytes Percent Auto 36.2 (Ref Range: 20-40 %) 32.1 (Ref Range: 20-40 %) 33.9 (Ref Range: 20-40 %) Monocytes Percent Auto 8.0 (Ref Range: 2-11 %) 9.0 (Ref Range: 2-11 %) 9.5 (Ref Range: 2-11 %) Eosinophils Percent Auto 4.2 H (Ref Range: 0-4 %) 3.9 (Ref Range: 0-4 %) 4.5 H (Ref Range: 0-4 %) Basophils Percent Auto 0.9 (Ref Range: 0-2 %) 1.1 (Ref Range: 0-2 %) 1.1 (Ref Range: 0-2 %) NRBC Pct Auto 0.0 (Ref Range: 0.0-0.2 /100WBC) 0.0 (Ref Range: 0.0-0.2 /100WBC) 0.0 (Ref Range: 0.0-0.2 /100WBC) Neutrophils Absolute Auto 3.9 (Ref Range: 2.0-8.3 x10*3/uL) 4.5 (Ref Range: 2.0-8.3 x10*3/uL) 3.8 (Ref Range: 2.0-8.3 x10*3/uL) Imm Gran Abs Auto 0.02 (Ref Range: 0.00-0.03 X10*3/uL) 0.02 (Ref Range: 0.00-0.03 X10*3/uL) 0.02 (Ref Range: 0.00-0.03 X10*3/uL) Lymphocytes Absolute Auto 2.8 (Ref Range: 1.2-4.9 X10*3/uL) 2.7 (Ref Range: 1.2-4.9 X10*3/uL) 2.6 (Ref Range: 1.2-4.9 X10*3/uL) Monocytes Absolute Auto 0.6 (Ref Range: 0.1-1.2 X10*3/uL) 0.8 (Ref Range: 0.1-1.2 X10*3/uL) 0.7 (Ref Range: 0.1-1.2 X10*3/uL) Eosinophils Absolute Auto 0.3 (Ref Range: 0.0-0.4 X10*3/uL) 0.3 (Ref Range: 0.0-0.4 X10*3/uL) 0.3 (Ref Range: 0.0-0.4 X10*3/uL) Basophils Absolute Auto 0.1 (Ref Range: 0.0-0.2 X10*3/uL) 0.1 (Ref Range: 0.0-0.2 X10*3/uL) 0.1 (Ref Range: 0.0-0.2 X10*3/uL) NRBC Abs Auto 0.000 (Ref Range: 0.0-0.012 X10*3/uL) 0.000 (Ref Range: 0.0-0.012 X10*3/uL) 0.000 (Ref Range: 0.0-0.012 X10*3/uL) * Examination: G eneral Examination: GENERAL APPEARANCE: [...] bruits. LUNGS: , diminished breath sounds throughout, no wheezes, rales, rhonchi, good air movement. BREASTS: D eclined. ABDOMEN: b owel sounds normal, no ascites, no organomegaly, no mass. RECTAL EXAM: n ot examined, Declined. MUSCULOSKELETAL: e xtremities unremarkable, no clubbing, cyanosis or edema. PERIPHERAL PULSES: n ormal. NEUROLOGIC: a lert and oriented, cranial nerves 2-12 grossly intact, deep tendon reflexes 2+ symmetrical, motor strength normal upper and lower extremities, sensory exam intact. PSYCH: a lert, oriented. Assessment: * Assessment: 1. T obacco dependence - F17.200 (Primary) N otes :We have reviewed all of the health consequences of continued smoking. I have recommended smoke [facility] and the smoking cessation programs at the local hospitals. She will consider this. I have made her aware of the utility of nicotine patches and Chantix. She will consider these as well. 2 . O besity (BMI 30.0-34.9) - E66.9 N otes :Her weight has been stable. The Zepbound dose was increased. She will be seen once a month. 3 . D epression, unspecified depression type - F32.9 N otes :She continues on the sertraline. She has had no side effects.She wants to taper off the clonazepam and we have begun this process today. 4 . S leep apnea, unspecified type - G47.30 N otes :She denies any daytime somnolence and says she is happy with her current state of affairs. 5 . H yperlipidemia, unspecified hyperlipidemia type - E78.5 N otes :She has stopped taking her a atorvastatin stating that she does not wish to take medication. I discussed this with her at length and she persisted in this decision. 6 . E ssential hypertension - I10 N otes :She has stopped her lisinopril. I have prescribed Metoprolol succinate 25 mg daily and we'll titrate the dose. 7 . V itamin D deficiency, unspecified - E55.9 N otes :She was continued on vitamin D supplementation. I told her the appropriate dose would be 1000 units of vitamin D3. Plan: * Treatment: 2. O jaylyn (BMI 30.0-34.9) Continue clonazePAM Tablet, 0.5 MG, 1 tablet, Orally, Once a day; C ontinue FLUoxetine HCl Capsule, 20 MG, 1 capsule, Orally, Once a day; C ontinue Sertraline HCl Tablet, 25 MG, 1 tablet, Orally, Once a day; C ontinue amLODIPine Besylate Tablet, 5 MG, TAKE 1 TABLET BY MOUTH EVERY DAY FOR 90 DAYS, Oral; S tart Zepbound Solution Auto-injector, 2.5 MG/0.5ML, 0.5 mL, Subcutaneous, weekly, 28 days, 4 Applicator, Refills 11; S tart clonazePAM Tablet, 0.5 MG, one half tablet, Orally, Once a day, 30 days, 15, Refills 0; S tart Metoprolol Succinate Capsule ER 24 Hour Sprinkle, 25 MG, 1 capsule, Orally, Once a day, 30 days, 30, Refills 11, Notes to Pharmacist: This medication was stopped at the pharmacy and corrected RX sent to pharmacy, Notes: This medication was stopped at the pharmacy and corrected RX sent to pharmacy; S tart Metoprolol Succinate ER Tablet Extended Release 24 Hour, 25 MG, 1 tablet, Orally, Once a day, 30 days, 30, Refills 11. 3. O thers Continue valACYclovir HCl Tablet, 500 [...] tobacco use and urged to quit. 0 02/28/2025 Patient Lifestyle Goals P atient wants to quit Treatment Goals S et a quit date, Cut down by 1 cigarette a week Barriers S ocial smoker, Stress Self-Management Plan M aliza a plan to cut down number of cigarettes over time and set a date to work towards quitting * Follow Up: 2 Months (Reason: OV) * Images: * Sign off status: Completed true * Provider: Stephy Crane MD Date: 0 02/28/2025 Generated for Carey hewitt/Dina/eTransmitting on: 1 09/11/2024 12:53 PM EST History and Physical Notes * HPI (History of Present Illness) Category Sub-Category Detail Notes Depression Screening PHQ-9 Little inte rest or pleasure in doing things: More than half the days Feeling down, depressed, or hopeless: Mo re than half the days Trouble falling or staying asleep, or sl eeping too much: Nearly every day Feeling tired or having little energy: N early every day Poor appetite or overeating: Several day s Feeling bad about yourself o r that you are a failure, or have let yourself or your family down: Nearly every day Trouble concentrating on thi ngs, such as reading the newspaper or watching television: More than half the days Moving or speaking so slowly that other people could have noticed; or the opposite, being so fidgety or restless that you have been moving around a lot more than usual: Not at all Thoughts that you would be b avery off or of hurting yourself in some way: Not at all Total Score: 16 Interpretation: Moderately Severe Depres harika COVID-19 Screening Questions Have you had any new onset fever, chills, cough, congestion, sore throat, shortness of breath, muscle aches?: No SDOH Questions SDOH Questions In the past year have you been worried about losing your housing?: No In the past year have you or any family members you live with been unable to get any of the following when it was really needed? Check all that apply:: None Examination Category Sub-Category Detail Notes General Examination [...] bruits LUNGS: , diminished breath sounds throughout, no wheezes, rales, rhonchi, good air movement ABDOMEN: bowel sounds normal, no ascites, no organomegaly, no mass NEUROLOGIC: alert and oriented, cranial nerves 2-12 grossly intact, deep tendon reflexes 2+ symmetrical, motor strength normal upper and lower extremities, sensory exam intact SKIN: no suspicious lesion s, anicteric PERIPHERAL PULSES: normal BREASTS: Declined MUSCULOSKELETAL: extremities unremark able, no clubbing, cyanosis or edema LYMPH NODES: no enlarged lymph no stefanie,spleen normal RECTAL EXAM: not examined, Declin ed PSYCH: alert, oriented ORAL CAVITY: normal, unremarkable
--- OUTSIDE RECORDS SUMMARY | 2025-05-03 04:15 | XMS_ITS ---
Author Organization Agapito Crane III, MD Address [address] [place] [address] Care Team Providers Care Weblogic Administrator Name Role Phone Dr. Agapito Crane III Primary Care Provider Allergies Allergen (clinical drug ingredient) Drug/Non Drug Allergy documented on EMR Reaction Allergy Type Onset Date Status No Known Drug Allergy Unknown Drug Allergy Active No Known Food Allergy Unknown Drug Allergy Active REASON FOR VISIT Worsening anxiety, Worsening depression, Sleep apnea, Obesity, Tobacco dependence, Hypertension Medications Medication SIG (Take, Route, Frequency, Duration) Notes Start Date End Date Status clonazePAM 0.5 MG TAKE 1/2 TABLET BY M OUTH ONCE DAILY 03/30/2025 Active Zepbound 5 MG/0.5ML 0.5 mL Subcutaneous weekly Active amLODIPine Besylate 5 MG TAKE 1 TABLET B Y MOUTH EVERY DAY FOR 90 DAYS Oral Activ e clonazePAM 0.5 MG 1 tablet Orally Once a day for 30 days 05/03/2025 Active Metoprolol Succinate ER 25 MG 1 tablet Orally Once a day 02/28/2025 A ctive Sertraline HCl 25 MG 1 tablet Orally Once a day Active FLUoxetine HCl 20 MG 1 capsule Orally On ce a day 02/27/2024 Active Meclizine HCl 50 MG 1 tablet as needed O rally every 8 hrs prn vertigo 05/06/2023 Active Ondansetron 8 MG 1 tablet on the tong ue and allow to dissolve as needed Orally every four hours prn nausea 05/06/2023 Active Atorvastatin Calcium 10 MG 1 tablet Orally Once a day 03/03/2024 Active Sertraline HCl 50 MG 1 tablet Orally Onc e a day for 30 days 05/03/2025 Active valACYclovir HCl 500 MG TAKE 1 TABLET BY MOUTH EVERY DAY FOR 5 DAYS Active Omeprazole 20 MG TAKE 1 CAPSULE BY [facility] EVERY DAY Active Social History Tobacco Use: [...] user Light cigarett e smoker (1-9 cigs/day) Vital Signs Temperature 97.9 degrees Fahrenheit 05/03/20 25 Blood pressure systolic 140 mm Hg 05/03/20 25 Blood pressure diastolic 79 mm Hg 025 Heart Rate 52 /min 05/03/2025 Height 64 in 05/03/2025 Weight 190 lbs 05/03/2025 BMI 32.61 kg/m2 05/03/2025 Encounters Encounter Location Date Provider Diagnosis Agapito Crane III, MD [address] [place] [address] [place] [address] 05/03/2025 Agapito Crane Obesity (BMI 30.0-34 .9) E66.9 ; Depression, unspecified depression type F32.9 ; Tobacco dependence F17.200 ; Sleep apnea, unspecified type G47.30 ; Hyperlipidemia, unspecified hyperlipidemia type E78.5 and Essential hypertension I10 Assessments Encounter Date Diagnosis (ICD Code) Assessment Notes Treat ment Notes Treatment Clinical Notes 05/03/2025 Obesity (BMI 30.0-34.9) (ICD-10 - E66.9) She has gained 5 pounds. Her anxiety and depression have increased. We reviewed her weight loss strategy. Her medications were adjusted. 05/03/2025 Depression, unspecified depression type (ICD-10 - F32.9) She continues on the sertraline. She has had no side effects.Tapering the clonazepam has led to weight gain and severe depression and worsening anxiety. The 0.5 mg dose was restored. I have increased his sertraline to 50 mg daily 05/03/2025 Tobacco dependence (ICD-10 - F17.200) We have reviewed all of the health consequences of continued smoking. I have recommended [facility] and the smoking cessation programs at the local hospitals. She will consider this. I have made her aware of the utility of nicotine patches and Chantix. She will consider these as well. 05/03/2025 Sleep apnea, unspecified type (ICD-10 - G47.30) She denies any daytime somnolence and says she is happy with her current state of affairs. 05/03/2025 Hyperlipidemia, unspecified hyperlipidemia type (ICD-10 - E78.5) She has stopped taking her a atorvastatin stating that she does not wish to take medication. I discussed this with her at length and she persisted in this decision. 05/03/2025 Essential hypertension (ICD-10 - I10) She has stopped her lisinopril. I have prescribed Metoprolol succinate 25 mg daily and we'll titrate the dose. Her blood pressure is somewhat improved. She will be seen in the near future should has not improved further the metoprolol dose will be increased. Plan Of Treatment Medication Medication Name Sig Start Date Stop Date Notes clonazePAM 0.5 MG TAKE 1/2 TABLET BY M OUTH ONCE DAILY 03/30/2025 Zepbound 5 MG/0.5ML 0.5 mL Subcutaneous weekly 11/24/2024 amLODIPine Besylate 5 MG TAKE 1 TABLET B Y MOUTH EVERY DAY FOR 90 DAYS Oral clonazePAM 0.5 MG 1 tablet Orally Once a day for 30 days 05/03/2025 Metoprolol Succinate ER 25 MG 1 tablet Orally Once a day 0 02/28/2025 Sertraline HCl 25 MG 1 tablet Orally Once a day 05/20/2024 FLUoxetine HCl 20 MG 1 capsule Orally Once a day Meclizine HCl 50 MG 1 tablet as needed O rally every 8 hrs prn vertigo 05/06/2023 Ondansetron 8 MG 1 tablet on the tong ue and allow to dissolve as needed Orally every four hours prn nausea 05/06/2023 Atorvastatin Calcium 10 MG 1 tablet Orally Once a day 0710/2023 Sertraline HCl 50 MG 1 tablet Orally Onc e a day for 30 days 05/03/2025 valACYclovir HCl 500 MG TAKE 1 TABLET BY MOUTH EVERY DAY FOR 5 DAYS Omeprazole 20 MG TAKE 1 CAPSULE BY [facility] EVERY DAY Next Appt Details Follow Up: 6 Weeks, Reason: Telehealth Provider Name:Agapito Barragan Crane , 08/09/2025 09:30:00 AM, [address] [place] [address] [place], [place], [address], Provider Name:Agapito Barragan [place] , 03/02/2026 10:00:00 AM, [address] [place] [address] [address], [place], [address], Progress Notes * DIONI OHDOB:1960 (65 yo F)Acc No.[id number]:05/03/2025 Progress Notes Patient: DIONI LIRA Provider: Stephy Crane MD :1960 A ge:65 Y S ex:Female Date:05/03/2025 Address:[address] [place] [address] [id number] Subjective: * Chief Complaints: * W orsening anxietyWorsening depressionSleep apneaObesityTobacco dependenceHypertension * HPI: D epression Screening: Recently we decreased the dose of clonazepam from 0.5 mg to 0.25 mg. Her anxiety has significantly increased and her depression has gotten worse. She says she did a great deal better on the higher dose of clonazepam and think she needs increasing doses of sertraline. Clonazepam was returned to 0.5 mg sertraline was increased to 50 mg per. PHQ-9 L ittle interest or pleasure in doing things?More than half the days F eeling down, depressed, or hopeless S everal days T rouble falling or staying asleep, or sleeping too much N early every day F eeling tired or having little energy N early every day P oor appetite or overeating M ore than half the days F eeling bad about yourself or that you are a failure, or have let yourself or your family down M ore than half the days T rouble concentrating on things, such as [...] ot at all T otal Score 1 5 I nterpretation M oderately Severe Depression C [...] yspnea on exertion?denies. S hortness of breath w ith exertion. G astrointestinal: Constipation o ccasional. D ecreased [...] pain d enies. P sychiatric: Depressed mood W orsening. 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 She works 80 hours per week. She is with no children. She lives in [place]. {'Smoking': 'Yes'} Smoking - Reduced to 3 cigarettes a day. * Medications: T akingvalACYclovir HCl 500 MG Tablet TAKE 1 TABLET BY MOUTH EVERY DAY FOR 5 DAYS Atorvastatin Calcium 10 MG Tablet 1 tablet [...] MOUTH EVERY DAY FOR 90 DAYS Oral Metoprolol Succinate ER 25 MG Tablet Extended Release 24 Hour 1 tablet Orally Once a day Zepbound 5 MG/0.5ML Solution Auto-injector 0.5 mL Subcutaneous weekly Omeprazole 20 MG Capsule Delayed Release TAKE 1 CAPSULE BY MOUTH EVERY DAY clonazePAM 0.5 MG Tablet TAKE 1/2 TABLET BY MOUTH ONCE DAILY Taking valACYclovir HCl 500 MG Tablet TAKE 1 TABLET BY MOUTH EVERY DAY FOR 5 DAYS Taking Atorvastatin Calcium 10 MG Tablet 1 [...] EVERY DAY FOR 90 DAYS Oral Taking Metoprolol Succinate ER 25 MG Tablet Extended Release 24 Hour 1 tablet Orally Once a day Taking Zepbound 5 MG/0.5ML Solution Auto-injector 0.5 mL Subcutaneous weekly Taking Omeprazole 20 MG Capsule Delayed Release TAKE 1 CAPSULE BY MOUTH EVERY DAY Taking clonazePAM 0.5 MG Tablet TAKE 1/2 TABLET BY MOUTH ONCE DAILY DiscontinuedZepbound 2.5 MG/0.5ML Solution Auto-injector 0.5 mL Subcutaneous weekly , stop date 01/30/2026Medication List reviewed and reconciled with the patientDiscontinued Zepbound 2.5 MG/0.5ML Solution Auto-injector 0.5 mL Subcutaneous weekly , stop date 01/30/2026Medication List reviewed and reconciled with the patient * Allergies: N o Known Drug AllergyNo Known Food Allergyno[Allergies Verified] Objective: * Vitals: H t: 64, Wt: 190, BMI:32.61, BP: 140/79, HR: 52, Temp: 97.9, Ht-cm: 162.56, Wt-k.18. * P ast Orders: Lab:Complete Blood Count Aut o Diff * [...] 0.0-0.012 X10*3/uL) 0.000 (Ref Range: 0.0-0.012 X10*3/uL) ???Lab:Comprehensive Met. Panel (Order Date - 02/23/2025) (Collection Date & Time - 02/23/2025 08:45 AM)?ValueReference Range?[id number] - mmol/L?Bilirubin Total0.30.0-1.0 - mg/dL?Aspartate Amino Lsvxhwwgjlk960-61 - U/L?Alanine Hrbbjnjycvganhor41Q3-15 - U/L ?Total Protein6.96.5-8.0 - g/dL?Albumin Level4.53.5-5.0 - g/dL ?Alkaline Thbigixqjjj43302-176 - U/L?Potassium4.53.3-5.1 - mmol/L ?Sntunlxn779U81-771 - mmol/L?Carbon Xkzahht2206-53 - mmol/L ?Anion Woa7877-75 -?Blood Urea Ighazarg722-58 - mg/dL ?Creatinine1.010.5-1.4 - mg/dL?Estimated Glomerular Filt Rate55- ?Glucose Iiaiqx9467-690 - mg/dL?Calcium9.28.4-10.2 - mg/dL * Examination: G eneral Examination: GENERAL APPEARANCE: leonard more, well nourished, well developed, in no acute distress, calm and relaxed: obese: woman. HEAD: a traumatic, normocephalic. EYES: e [...] sounds normal, no ascites, no organomegaly, no mass: centripital obesity. RECTAL EXAM: n ot examined. MUSCULOSKELETAL: e xtremities unremarkable, no clubbing, cyanosis or edema. PERIPHERAL PULSES: n ormal. NEUROLOGIC: a lert and oriented, cranial nerves 2-12 grossly intact, deep tendon reflexes 2+ symmetrical, motor strength normal upper and lower extremities, sensory exam intact. PSYCH: a lert, oriented: anxious appearing: mood depressed.? Assessment: * Assessment: 1. D epression, unspecified depression type - F32.9 (Primary) N otes :She continues on the sertraline. She has had no side effects.Tapering the clonazepam has led to weight gain and severe depression and worsening anxiety. The 0.5 mg dose was restored. I have increased his sertraline to 50 mg daily 2 . O besity (BMI 30.0-34.9) - E66.9 N otes :She has gained 5 pounds. Her anxiety and depression have increased. We reviewed her weight loss strategy. Her medications were adjusted. 3 . T obacco dependence - F17.200 N otes :We have reviewed all of the health consequences of continued smoking. I have recommended [facility] and the smoking cessation programs at the local hospitals. She will consider this. I have made her aware of the utility of nicotine patches and Chantix. She will consider these as well. 4 . S leep apnea, unspecified type [...] further the metoprolol dose will be increased. Plan: * Treatment: 2. O besity (BMI 30.0-34.9) Continue FLUoxetine HCl Capsule, 20 MG, 1 capsule, Orally, Once a day; C ontinue Sertraline HCl Tablet, 25 MG, 1 tablet, Orally, Once a day; C ontinue amLODIPine Besylate Tablet, 5 MG, TAKE 1 TABLET BY MOUTH EVERY DAY FOR 90 DAYS, Oral; C ontinue Metoprolol Succinate ER Tablet Extended Release 24 Hour, 25 MG, 1 tablet, Orally, Once a day; S tart clonazePAM Tablet, 0.5 MG, 1 tablet, Orally, Once a day, 30 days, 30 Tablet, Refills 2; S tart Sertraline HCl Tablet, 50 MG, 1 tablet, Orally, Once a day, 30 days, 30, Refills 11. 3. T obacco dependence Continue Zepbound Solution Auto-injector, 5 MG/0.5ML, 0.5 mL, Subcutaneous, weekly. 4. O thers Continue Omeprazole Capsule Delayed Release, 20 MG, TAKE 1 CAPSULE BY MOUTH EVERY DAY; C ontinue valACYclovir HCl Tablet, 500 MG, TAKE 1 TABLET BY MOUTH EVERY DAY FOR 5 DAYS; C ontinue Atorvastatin Calcium Tablet, 10 MG, [...] tobacco use and urged to quit. 0 05/03/2025 Patient Lifestyle Goals P atient wants to quit Treatment Goals S et a quit date, Cut down by 1 cigarette a week Barriers S ocial smoker, Stress Self-Management Plan M aliza a plan to cut down number of cigarettes over time and set a date to work towards quitting * Follow Up: 6 Weeks (Reason: Telehealth) * Images: * Sign off status: Completed true * Provider: Stephy Crane MD Date: 0 05/03/2025 Generated for Carey hewitt/Dina/eTransmitting on: 1 09/11/2024 12:54 PM EST History and Physical Notes * HPI (History of Present Illness) Category Sub-Category Detail Notes Depression Screening PHQ-9 Little inte rest or pleasure in doing things: More than half the days Feeling down, depressed, or hopeless: Se veral days Trouble falling or staying asleep, or sl eeping too much: Nearly every day Feeling tired or having little energy: N early every day Poor appetite or overeating: More than h custodial the days Feeling bad about yourself o r that you are a failure, or have let yourself or your family down: More than half the days Trouble concentrating on thi ngs, such as [...] some way: Not at all Total Score: 15 Interpretation: Moderately Severe Depres harika COVID-19 Screening Questions Have you had any new onset fever, chills, cough, congestion, sore throat, shortness of breath, muscle aches?: No Examination Category Sub-Category Detail Notes General Examination GENERAL APPEARANCE: pleasant , well nourished, well developed, in no acute distress, calm and relaxed: obese: woman HEAD: atraumatic, normocep halic EYES: eomi, perrla, anicte fawn, conjugate EARS: normal NOSE: septum intact NECK/THYROID: no jugular venous di stention, no carotid bruit, thyroid normal HEART: no clicks, gallops, murmurs, or rubs, regular rhythm, S1, S2 normal, no s3, or vascular bruits LUNGS: clear to auscultatio n ABDOMEN: bowel sounds normal, no ascites, no organomegaly, no mass: centripital obesity NEUROLOGIC: alert and oriented, cranial nerves 2-12 grossly intact, deep tendon reflexes 2+ symmetrical, motor strength normal upper and lower extremities, sensory exam intact SKIN: no suspicious lesion s, anicteric PERIPHERAL PULSES: normal BREASTS: Not examined MUSCULOSKELETAL: extremities unremark able, no clubbing, cyanosis or edema LYMPH NODES: no enlarged lymph no stefanie,spleen normal RECTAL EXAM: not examined PSYCH: alert, oriented: anx ious appearing: mood depressed ORAL CAVITY: normal, unremarkable
--- OUTSIDE RECORDS SUMMARY | 2025-06-14 04:15 | XMS_ITS ---
Author Organization Agapito Crane III, MD Address [address] [place] [address] Care Team Providers Care Massage Operator Name Role Phone Dr. Agapito Crane III Primary Care Provider Allergies Allergen (clinical drug ingredient) Drug/Non Drug Allergy documented on EMR Reaction Allergy Type Onset Date Status No Known Drug Allergy Unknown Drug Allergy Active No Known Food Allergy Unknown Drug Allergy Active REASON FOR VISIT Depression, Anxiety, Sleep apnea, Obesity, Tobacco dependence, Hypertension, Vitamin D deficiency Medications Medication SIG (Take, Route, Frequency, Duration) Notes Start Date End Date Status amLODIPine Besylate 5 MG TAKE 1 TABLET B Y MOUTH EVERY DAY FOR 90 DAYS Oral Activ e Meclizine HCl 50 MG 1 tablet as needed O rally every 8 hrs prn vertigo 05/06/2023 Active Ondansetron 8 MG 1 tablet on the tong ue and allow to dissolve as needed Orally every four hours prn nausea 05/06/2023 Active Zepbound 5 MG/0.5ML 0.5 mL Subcutaneous weekly Active Metoprolol Succinate ER 25 MG 1 tablet Orally Once a day 02/28/2025 A ctive valACYclovir HCl 500 MG TAKE 1 TABLET BY MOUTH EVERY DAY FOR 5 DAYS Active Atorvastatin Calcium 10 MG 1 tablet Orally Once a day 03/03/2024 Active Omeprazole 20 MG TAKE 1 CAPSULE BY [facility] EVERY DAY Active FLUoxetine HCl 20 MG 1 capsule Orally On ce a day 02/27/2024 Active Sertraline HCl 25 MG 1 tablet Orally Once a day Active Zepbound 2.5 MG/0.5ML as directed Subcutaneous Active Sertraline HCl 50 MG 1 tablet Orally Once a day Active clonazePAM 0.5 MG TAKE 1/2 TABLET BY M [facility] ONCE DAILY 03/30/2025 Active clonazePAM 0.5 MG 1 tablet Orally Once a day 05/03 Active FLUoxetine HCl 20 MG 1 capsule Orally On ce a day for 30 days 06/14/2025 Active Social History Tobacco Use: Social History [...] cigs/day) Vital Signs Temperature 97.9 degrees Fahrenheit 06/14/20 25 Blood pressure systolic 166 mm Hg 06/14/20 25 Blood pressure diastolic 98 mm Hg 025 Heart Rate 67 /min 06/14/2025 Height 64 in 06/14/2025 Weight 195 lbs 06/14/2025 BMI 33.47 kg/m2 06/14/2025 Encounters Encounter Location Date Provider Diagnosis Agapito Crane III, MD [address] [place] [address] [place] [address] [place] [address] 06/14/2025 Agapito Crane Obesity (BMI 30.0-34 .9) E66.9 ; Depression, unspecified depression type F32.9 ; Tobacco dependence F17.200 ; Sleep apnea, unspecified type G47.30 and Hyperlipidemia, unspecified hyperlipidemia type E78.5 Assessments Encounter Date Diagnosis (ICD Code) Assessment Notes Treat ment Notes Treatment Clinical Notes 06/14/2025 Obesity (BMI 30.0-34.9) (ICD-10 - E66.9) She has gained 5 pounds. Her anxiety and depression have increased. We reviewed her weight loss strategy. Her medications were adjusted.The sertraline was stopped and fluoxetine resumed. Her Zepbound was continued 06/14/2025 Depression, unspecified depression type (ICD-10 - F32.9) She believes the sertraline has caused weight gain. That was discontinued and fluoxetine was resumed. She has been referred to psychotherapy. 06/14/2025 Tobacco dependence (ICD-10 - F17.200) We have reviewed all of the health consequences of continued smoking. I have recommended smoke [facility] and the smoking cessation programs at the local hospitals. She will consider this. I have made her aware of the utility of nicotine patches and Chantix. She will consider these as well. 06/14/2025 Sleep apnea, unspecified type (ICD-10 - G47.30) She denies any daytime somnolence and says she is happy with her current state of affairs. 06/14/2025 Hyperlipidemia, unspecified hyperlipidemia type (ICD-10 - E78.5) She has stopped taking her a atorvastatin stating that she does not wish to take medication. I discussed this with her at length and she persisted in this decision. Plan Of Treatment Medication Medication Name Sig Start Date Stop Date Notes amLODIPine Besylate 5 MG TAKE 1 TABLET B Y MOUTH EVERY DAY FOR 90 DAYS Oral Meclizine HCl 50 MG 1 tablet as needed O rally every 8 hrs prn vertigo 05/06/2023 Ondansetron 8 MG 1 tablet on the tong ue and allow to dissolve as needed Orally every four hours prn nausea 05/06/2023 Zepbound 5 MG/0.5ML 0.5 mL Subcutaneous weekly 11/24/2024 Metoprolol Succinate ER 25 MG 1 tablet Orally Once a day 0 02/28/2025 valACYclovir HCl 500 MG TAKE 1 TABLET BY MOUTH EVERY DAY FOR 5 DAYS Atorvastatin Calcium 10 MG 1 tablet Orally Once a day 10/2023 Omeprazole 20 MG TAKE 1 CAPSULE BY [facility] EVERY DAY FLUoxetine HCl 20 MG 1 capsule Orally Once a day Sertraline HCl 25 MG 1 tablet Orally Once a day 05/20/2024 Zepbound 2.5 MG/0.5ML as directed Subcutaneous 06/14/2025 Sertraline HCl 50 MG 1 tablet Orally Once a day 05/03/2025 clonazePAM 0.5 MG TAKE 1/2 TABLET BY M [facility] ONCE DAILY 03/30/2025 clonazePAM 0.5 MG 1 tablet Orally Once a day 05/03/2025 FLUoxetine HCl 20 MG 1 capsule Orally On ce a day for 30 days 06/14/2025 Next Appt Details Follow Up: 4 Weeks, Reason: ov Provider Name:Agapito Glassne , 08/09/2025 09:30:00 AM, [address] [facility] [address], [place], [address], Provider Name:Agapito Barragan Royce , 03/02/2026 10:00:00 AM, [address] [place] [address] [address], [place], [address], Progress Notes * DIONI OHDOB:1960 (65 yo F)Acc No.[id number]:06/14/2025 Progress Notes Patient: DIONI LIRA Provider: Stephy Crane MD :1960 A ge:65 Y S ex:Female Date:06/14/2025 Address:[address] [place] [address] , [phone] Subjective: * Chief Complaints: * D epressionAnxietySleep apneaObesityTobacco dependenceHypertensionVitamin D deficiency * HPI: C OVID-19 Screening: S he returns for a scheduled visit to manage her anxiety and depression hypertension vitamin D deficiency smoking and lipids. She is taking 0.5 mg of clonazepam daily and 50 mg of sertraline.She has gained 10 pounds since January 2025 and 5 pounds since her last visit. She is concerned that the sertraline is causing this. She does not wish to continue it and will return to her previous dose of fluoxetine. I have given her a new prescription.She was continued on the 5 mg dose of Zepbound. She tried to take a quarter of the 0.5 mg of clonazepam but this did not relieve her anxiety so she is back to taking a half tablet. She indicated desire for therapy.? She was referred to psychotherapy. Follow-up visit was arranged.Comprehensive blood work will be obtained. Questions H ave you had any new [...] P sychiatric: Depressed mood w hich is moderate. 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 She works 80 hours per week. She is with no children. She lives in [place]. {'Smoking': 'Yes'} Smoking - Reduced to 3 cigarettes a day. * Medications: T akingZepbound 2.5 MG/0.5ML Solution Auto-injector as directed Subcutaneous Omeprazole 20 MG Capsule Delayed Release TAKE 1 CAPSULE BY MOUTH EVERY DAY valACYclovir HCl 500 MG Tablet TAKE 1 [...] MG/0.5ML Solution Auto-injector 0.5 mL Subcutaneous weekly Metoprolol Succinate ER 25 MG Tablet Extended Release 24 Hour 1 tablet Orally Once a day clonazePAM 0.5 MG Tablet 1 tablet Orally Once a day Sertraline HCl 50 MG Tablet 1 tablet Orally Once a day Medication List reviewed and reconciled with the patientTaking Zepbound 2.5 MG/0.5ML Solution Auto-injector as directed Subcutaneous Taking Omeprazole 20 MG Capsule Delayed Release TAKE 1 CAPSULE BY MOUTH EVERY DAY Taking valACYclovir HCl 500 MG Tablet TAKE [...] Solution Auto-injector 0.5 mL Subcutaneous weekly Taking Metoprolol Succinate ER 25 MG Tablet Extended Release 24 Hour 1 tablet Orally Once a day Taking clonazePAM 0.5 MG Tablet 1 tablet Orally Once a day Taking Sertraline HCl 50 MG Tablet 1 tablet Orally Once a day Medication List reviewed and reconciled with the patient * Allergies: N o Known Drug AllergyNo Known Food Allergyno[Allergies Verified] Objective: * Vitals: H t: 64, Wt: 195, BMI:33.47, BP: 166/98, HR: 67, Temp: 97.9, Ht-cm: 162.56, Wt-k.45. * Examination: G eneral [...] organomegaly, no mass. RECTAL EXAM: n ot examined. MUSCULOSKELETAL: e xtremities unremarkable, no clubbing, cyanosis or edema. PERIPHERAL PULSES: n ormal. NEUROLOGIC: a lert and oriented, cranial nerves 2-12 grossly intact, deep tendon reflexes 2+ symmetrical, motor strength normal upper and lower extremities, sensory exam intact. PSYCH: a lert, oriented, Anxious, depressed. ? Assessment: * Assessment: 1. D epression, unspecified depression type - F32.9 (Primary) N otes :She believes the sertraline has caused weight gain. That was discontinued and fluoxetine was resumed. She has been referred to psychotherapy. 2 . O besity (BMI 30.0-34.9) - E66.9 N otes :She has gained 5 pounds. Her anxiety and depression have increased. We reviewed her weight loss strategy. Her medications were adjusted.The sertraline was stopped and fluoxetine resumed. Her Zepbound was continued 3 . T obacco dependence - F17.200 N otes :We have reviewed all of the health consequences of continued smoking. I have recommended smoke [facility] and the smoking cessation programs at the [...] in this decision. Plan: * Treatment: 2. O besity (BMI 30.0-34.9) Continue amLODIPine Besylate Tablet, 5 MG, TAKE 1 TABLET BY MOUTH EVERY DAY FOR 90 DAYS, Oral; C ontinue Metoprolol Succinate ER Tablet Extended Release 24 Hour, 25 MG, 1 tablet, Orally, Once a day; C ontinue clonazePAM Tablet, 0.5 MG, 1 tablet, Orally, Once a day; C ontinue Sertraline HCl Tablet, 50 MG, 1 tablet, Orally, Once a day; S tart FLUoxetine HCl Capsule, 20 MG, 1 capsule, Orally, Once a day, 30 days, 30, Refills 11; C ontinue Zepbound Solution Auto-injector, 2.5 MG/0.5ML, as directed, Subcutaneous; C ontinue FLUoxetine HCl Capsule, 20 MG, 1 capsule, Orally, Once a day; C ontinue Sertraline HCl Tablet, 25 MG, 1 tablet, Orally, Once a day. 3. T obacco dependence Continue Zepbound Solution [...] C ut down by 1 cigarette a week Barriers S ocial smoker, Stress Self-Management Plan M aliza a plan to cut down number of cigarettes over time and set a date to work towards quitting * Follow Up: 4 Weeks (Reason: ov) * Images: * Sign off status: Completed true * Provider: Stephy Crane MD Date: 1 Generated for Carey hewitt/Dina/eTmoniquesmitting on: 09/11/2024 12:54 PM EST History and Physical [...] RECTAL EXAM: not examined PSYCH: alert, oriented, Anx ious, depressed ORAL CAVITY: normal, unremarkable
--- NOTE | 2025-07-12 10:57 | A.OFFVIS_ITS ---
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 She is interested in talking about menopausal issues she does have some vaginal dryness. Years ago she had been on Prempro and some vagi nal estrogen she is a smoker she is now down to about 4 cigarettes a day but she does not think that she will ever fully quit that is her only vice. 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 And her dog as well she does have a new dog now. She is working on weight loss she is on sertraline and something else for depression. She has just resumed Zepbound. She likes walking in the [place] and she eats well. She will be scheduling her next mammogram soon. [facility] Medical History (Updated 07/12/25 @ 12:43 by Jaqueline Stack CNM) Ectopic Anxiety Depression Surgical History (Updated 07/12/25 @ 11:01 by Connie Kumar MA) H/O tubal ligation Family History (Updated 07/12/25 @ 11:02 by Connie Kumar MA) Mother Lung cancer Social History (Updated 07/12/25 @ 11:03 by Connie Kumar MA) Household Members: Family Household Members Other:: brother Housing: House Patient : No Current occupational status: employed Female Reproductive History Menstrual Age of Menarche: 17 control method: none and permanent sterilization (Tubal ligation) Total pregnancies: 3 Ab induced: 2 Ectopics: 1 History of abnormal pap smear: No Physical Exam Vital Signs: Last Vital Signs BP 142/86 H 07/12/25 11:08 BMI result Body Mass Index 34.2 Const General: healthy appearing, comfortable, no acute distress, well developed and alert Nutritional Appearance: average body habitus Orientation/consciousness: patient oriented x3 Limitations: no limitations HEENT Head: Yes normocephalic Neck Neck: Yes normal visual inspection Chest Chest palpation & inspection: normal inspection of the chest Breast/axilla inspection: normal inspection of the breasts and normal inspection of the axillae Breast/axilla palpation: normal palpation of the breasts and normal palpation of the axillae Resp Effort & Inspection: normal respiratory effort GI Inspection: Yes normal to inspection, No Abdominal wall edema and No distended Palpation (GI): Soft to palpation and nontender Other: External exam within normal limits for postmenopausal female some thinning of vaginal mucosa and notable cervix and vagina moist and pink cervix nulliparous pink smooth healthy appearing no abnormal discharge uterus small midposition mobile nontender adnexa nontender good tone with Kegel. General: Yes bladder normal to palpation External Female Exam: normal external appearance and normal appearance of the urethra Speculum Exam - Vagina: normal appearance of the vagina, normal palpation and normal vaginal discharge Speculum Exam - Cervix: normal appearance of the cervix, normal palpation and nontender Bimanual exam- vagina & uterus: normal bimanual exam, normal palpation, uterine size normal, bladder normal to palpation, consistency normal, normal palpation, uterine mobility normal, uterine shape normal, No Cervical tenderness present, non-tender and no cervical motion tenderness Bimanual Exam- Adnexa, other: normal adnexae, no masses, normal and No adnexal tenderness Neuro General: patient oriented x3 Assessment & Plan Assessment & Plan (1) Postmenopausal: Code(s): Z78.0 - Asymptomatic menopausal state Category: Medical (2) Well woman exam with routine gynecological exam: Code(s): Z01.419 - Encounter for gynecological examination (general) (routine) without abnormal findings Category: Medical (3) Cervical cancer screening: Code(s): Z12.4 - Encounter for screening for malignant neoplasm of cervix Category: Medical (4) Breast cancer screening: Code(s): Z12.39 - Encounter for other screening for malignant neoplasm of breast Category: Medical (5) Smoker: Comment: 4 cigarettes a day... Code(s): F17.200 - Nicotine dependence, unspecified, uncomplicated Category: Social Hx Plan -----Discussed in this visit the following: healthy balanced diet, regular and consistent exercise, getting recommended health screens, doing the best she can for her particular health concerns, kegel exercises, pap smear screening and followup recommendations, mammography screening and SBE, normal changes in cycles in her life stage--- .---Discussed normal changes that happen premenapausally, perimenapausally, and postmenopausally, and ways to handle them. Discussed the normal variation, and the range of experiences that women experience. Discussed nutrition, health, need for exercise, both weight-bearing and aerobic. Also discussed the normal changes that happen with vaginal mucosal thinning and sensitivity, and simple more natural ways of handling these challenges. Discussed vaginal dryness and possible solutions. Discussed potential risks of vaginal estrogen which while they are lower are not 0. The FDA as just remove the black box warning for some HRT she does not think she would be interested in quitting smoking. Reviewed that other provider's might be more comfortable with prescribing vaginal estrogen. Discussed alternatives as well. Pap smear done as well as screening for STIs. She will be getting her mammogram soon RTC 1 yr Coding Level of Care Code New Pt Prev Care 40-64y([id number]) Diagnoses Postmenopausal Z78.0 Well woman exam with routine gynecological exam Z01.419 Cervical cancer screening Z12.4 Breast cancer screening Z12.39 Smoker F17.200
[2025-07-12 11:08] VITALS: BP 142/86; BMI 34.2
--- OUTSIDE RECORDS SUMMARY | 2025-07-12 12:55 | XMS_ITS | Patient Health Record ---
Author Organization Agapito Crane III, MD Address [address] [place] [address] Care Team Providers Care Merchandising Stock Associate Name Role Phone Dr. Agapito Crane III Primary Care Provider [phone] Allergies Allergen (clinical drug ingredient) Drug/Non Drug Allergy documented on EMR Reaction Allergy Type Onset Date Status No Known Drug Allergy Unknown Drug Allergy Active No Known Food Allergy Unknown Drug Allergy Active Results Component Value Reference Range Notes Complete Blood Count Auto Di ff Reviewed date:02/23/2025 03:18:39 PM Interpretation: Performing Lab:[facility], [address] [place] [phone] Notes/Report: White Blood Count 7.7 4.8-10.8 X10*3/uL Red Blood Count 4.72 4.20-5.50 X10*6/uL Hemoglobin 13.4 12.0-16.0 g/dl Hematocrit 41.1 37.0-47.0 % Mean Corpuscular Volume 87.1 80.0-98.0 fL Mean Corpuscular Hemoglobin 28.4 27.0-33.0 pg Mean Corpuscular HGB Conc 32.6 31.0-35.0 g/dl Red Cell Distribution Width 13.4 11.0-16.0 % Platelet Count 299 160-400 X10*3/uL Mean Platelet Volume 10.2 9.4-12.3 fL Neutrophils Percent Auto 50.4 45-73 % Imm Gran Pct Auto 0.3 0.0-0.4 % Lymphocytes Percent Auto 36.2 20-40 % Monocytes Percent Auto 8.0 2-11 % Eosinophils Percent Auto 4.2 0-4 % Basophils Percent Auto 0.9 0-2 % NRBC Pct Auto 0.0 0.0-0.2 /100WBC Neutrophils Absolute Auto 3.9 2.0-8.3 x10*3/u L Imm Gran Abs Auto 0.02 0.00-0.03 X10*3/uL Lymphocytes Absolute Auto 2.8 1.2-4.9 X10*3/u L Monocytes Absolute Auto 0.6 0.1-1.2 X10*3/uL Eosinophils Absolute Auto 0.3 0.0-0.4 X10*3/u L Basophils Absolute Auto 0.1 0.0-0.2 X10*3/uL NRBC Abs Auto 0.000 0.0-0.012 X10*3/uL Comprehensive Met. Panel Reviewed date:02/23/2025 03:18:39 PM Interpretation: Performing Lab:[facility], [address] [place] [phone] Notes/Report: Sodium 141 135-145 mmol/L Potassium 4.5 3.3-5.1 mmol/L Chloride 109 96-108 mmol/L Carbon Dioxide 24 22-29 mmol/L Anion Gap 13 12-20 Blood Urea Nitrogen 14 9-16 mg/dL Creatinine 1.01 0.5-1.4 mg/dL Estimated Glomerular Filt Rate 55 Chronic Kidney Disease: Estimated GFR < 60 mL/min/1.73m2 Severe Kidney Disease: Estimated GFR < 15 mL/min/1.73m2 Glucose Random 90 60-115 mg/dL Calcium 9.2 8.4-10.2 mg/dL Bilirubin Total 0.3 0.0-1.0 mg/dL Aspartate Amino Transferase 25 5-31 U/L Alanine Aminotransferase 40 0-31 U/L Total Protein 6.9 6.5-8.0 g/dL Albumin Level 4.5 3.5-5.0 g/dL Alkaline Phosphatase 103 39-117 U/L Reason For Referral Reason Evaluate and Treat Diagnosis 1 Postmenopausal (Z78. 0) Diagnosis 2 Routine gynecologica l examination (Z01.419) Referral Organization Agapito Crane III, MD Referring Provider First Name Agapito Referring Provider Last Name Royce Referring Provider Speciality Internal M edicine Referred Organization [facility] Referred Provider [facility], [facility] Referred Address [address] [place] [address],[place], [id number] Referred Provider Specialty OB - Gynecol nathaniel General Notes Harika Meyers 09/20/2024 11:23:10 AM > Referral faxed with progress note Referral Priority Routine Referral Appointment Date 01/13/2025 Medications Medication SIG (Take, Route, Frequency, Duration) Notes Start Date End Date Status amLODIPine Besylate 5 MG TAKE 1 TABLET B Y MOUTH EVERY DAY FOR 90 DAYS Oral Activ e Zepbound 2.5 MG/0.5ML as directed Subcutaneous Active Meclizine HCl 50 MG 1 tablet as needed O rally every 8 hrs prn vertigo 05/06/2023 Active Ondansetron 8 MG 1 tablet on the tong ue and allow to dissolve as needed Orally every four hours prn nausea 05/06/2023 Active valACYclovir HCl 500 MG TAKE 1 TABLET BY MOUTH EVERY DAY FOR 5 DAYS Active Sertraline HCl 50 MG 1 tablet Orally Once a day Active Atorvastatin Calcium 10 MG 1 tablet Orally Once a day 03/03/2024 Active clonazePAM 0.5 MG TAKE 1/2 TABLET BY M OUTH ONCE DAILY 03/30/2025 Active Omeprazole 20 MG TAKE 1 CAPSULE BY MO UTH EVERY DAY Active clonazePAM 0.5 MG 1 tablet Orally Once a day 05/03 Active FLUoxetine HCl 20 MG 1 capsule Orally On ce a day for 30 days 06/14/2025 Active Zepbound 5 MG/0.5ML 0.5 mL Subcutaneous weekly Active FLUoxetine HCl 20 MG 1 capsule Orally On ce a day 02/27/2024 Active Metoprolol Succinate ER 25 MG 1 tablet Orally Once a day 02/28/2025 A ctive Sertraline HCl 25 MG 1 tablet Orally Once a day Active Immunizations Vaccine Route Administration Date Status Comme nts COVID PFIZER Unknown 12/08/2021 Administered COVID PFIZER Unknown 12/23/2020 Administered COVID PFIZER Unknown 11/30/2020 Administered Social History Tobacco Use: Social History Observation [...] ast year? No Points 0 Interpretation Negative Problems Problem Type SNOMED Code ICD Code Onset Dates Problem Status W/U Status Risk Notes Problem [id number] Obesity (BMI 30.0-34.9) (E66.9) Active confirmed She has gained 5 pounds. Her anxiety and depression have increased. We reviewed her weight loss strategy. Her medications were adjusted.The sertraline was stopped and fluoxetine resumed. Her Zepbound was continued Problem 042013102 Tubular adenoma (D36.9) Active confirmed Problem Vitamin D deficiency (52572385) Vitamin D deficiency, unspecified (E55.9) Active confirmed She was continued on vitamin D supplementati on. I told her the appropriate dose would be 1000 units of vitamin D3. Problem [id number] Essential hypertension (I10) Active confirmed She has stopped her lisinopril. I have prescribed Metoprolol succinate 25 mg daily and we'll titrate the dose. Her blood pressure is somewhat improved. She will be seen in the near future should has not improved further the metoprolol dose will be increased. Problem 80538227 Tobacco dependence (F17.200) Active confirmed We have reviewed all of the health consequences of continued smoking. I have recommended smoke [place] and the smoking cessation programs at the local hospitals. She will consider this. I have made her aware of the utility of nicotine patches and Chantix. She will consider these as well. Problem [id number] Atypical chest pain (R07.89) Active confirmed She denies having any chest pain since her last visit. Problem Sleep apnea (42051491) Sleep apnea, unspecified type (G47.30) Active confirmed She denies any daytime somnolence and says she is happy with her current state of affairs. Problem Depressive disorder (disorder) (65073811) Depression, unspecified depression type (F32.9) Active confirmed She believes the sertraline has caused weight gain. That was discontinued and fluoxetine was resumed. She has been referred to psychotherapy . Problem Hyperlipidaemia (17220560) Hyperlipidemia, unspecified hyperlipidemia type (E78.5) Active confirmed She has stopped taking her a atorvastatin stating that she does not wish to take medication. I discussed this with her at length and she persisted in this decision. Vital Signs Heart Rate 67 /min 06/14/2025 Temperature 97.9 degrees Fahrenheit 06/14/2025 Blood pressure diastolic 98 mm Hg 06/14/2025 Height 64 in 06/14/2025 Blood pressure systolic 166 mm Hg 06/14/2025 Weight 195 lbs 06/14/2025 BMI 33.47 kg/m2 06/14/2025 Encounters Encounter Location Date Provider Diagnosis Agapito Crane III, MD [address] [place] [address] [place] [phone] 09/17/2024 Agapito Crane Obesity (BMI 30.0-34 .9) E66.9 ; Depression, unspecified depression type F32.9 ; Sleep apnea, unspecified type G47.30 ; Tobacco dependence F17.200 and Hyperlipidemia, unspecified hyperlipidemia type E78.5 Agapito Crane III, MD [address] [place] [address] [place] [address] 11/24/2024 Agapito Crane Obesity (BMI 30.0-34 .9) E66.9 ; Depression, unspecified depression type F32.9 ; Sleep apnea, unspecified type G47.30 and Tobacco dependence F17.200 Agapito Crane III, MD [address] [place] [address] [place] [address] 12/28/2024 Agapito Crane Obesity (BMI 30.0-34 .9) E66.9 ; Depression, unspecified depression type F32.9 ; Sleep apnea, unspecified type G47.30 ; Tobacco dependence F17.200 ; Hyperlipidemia, unspecified hyperlipidemia type E78.5 and Essential hypertension I10 Agapito Crane III, MD [address] [place] [address] [place] [address] 01/25/2025 Agapito Crane Obesity (BMI 30.0-34 .9) E66.9 ; Essential hypertension I10 ; Dizziness R42 ; Atypical chest pain R07.89 ; Depression, unspecified depression type F32.9 ; Sleep apnea, unspecified type G47.30 ; Tobacco dependence F17.200 and Hyperlipidemia, unspecified hyperlipidemia type E78.5 Agapito Crane III, MD [address] [place] [address] [place] [address] 02/28/2025 Agapito Crane Obesity (BMI 30.0-34 .9) E66.9 ; Tobacco dependence F17.200 ; Depression, unspecified depression type F32.9 ; Sleep apnea, unspecified type G47.30 ; Hyperlipidemia, unspecified hyperlipidemia type E78.5 ; Essential hypertension I10 and Vitamin D deficiency, unspecified E55.9 Agapito Crane III, MD [address] [place] [address] [place] [address] 05/03/2025 Agapito Crane Obesity (BMI 30.0-34 .9) E66.9 ; Depression, unspecified depression type F32.9 ; Tobacco dependence F17.200 ; Sleep apnea, unspecified type G47.30 ; Hyperlipidemia, unspecified hyperlipidemia type E78.5 and Essential hypertension I10 Agapito Crane III, MD [address] [place] [address] [place] [address] 06/14/2025 Agapito Crane Obesity (BMI 30.0-34 .9) E66.9 ; Depression, unspecified depression type F32.9 ; Tobacco dependence F17.200 ; Sleep apnea, unspecified type G47.30 and Hyperlipidemia, unspecified hyperlipidemia type E78.5 Agapito Crane III, MD [address] [place] [address] [place] [address] 01/31/2025 Agapito Crane Atypical chest pain R07.89 [...] She has had no side effects. 11/24/2024 Obesity (BMI 30.0-34.9) (ICD-10 - E66.9) Her medicationHer medication was kept at the same dose. She has lost 4 pounds. He is having no side effects. She will return in one month. 11/24/2024 Depression, unspecified depression type (ICD-10 - F32.9) She continues on the sertraline. She has had no side effects. 12/28/2024 Obesity (BMI 30.0-34.9) (ICD-10 - E66.9) Her medication was kept at the same dose. She has lost 6 pounds. She is having no side effects. She will return in one month. 12/28/2024 Depression, unspecified depression type (ICD-10 - F32.9) She continues on the sertraline. She has had no side effects. 01/25/2025 Obesity (BMI 30.0-34.9) (ICD-10 - E66.9) [...] 5 mg of lisinopril and I prescribed. 02/28/2025 Obesity (BMI 30.0-34.9) (ICD-10 - E66.9) [...] She will consider these as well. 05/03/2025 Obesity (BMI 30.0-34.9) (ICD-10 - E66.9) [...] increased his sertraline to 50 mg daily 06/14/2025 Obesity (BMI 30.0-34.9) (ICD-10 - E66.9) [...] resumed. She has been referred to psychotherapy. 01/31/2025 Atypical chest pain (ICD-10 - R07.89) 09/17/2024 Sleep apnea, unspecified type (ICD-10 - G47.30) She denies any daytime somnolence and says she is happy with her current state of affairs. 11/24/2024 Sleep apnea, unspecified type (ICD-10 - G47.30) She denies any daytime somnolence and says she is happy with her current state of affairs. 12/28/2024 Sleep apnea, unspecified type (ICD-10 - G47.30) She denies any daytime somnolence and says she is happy with her current state of affairs. 01/25/2025 Dizziness (ICD-10 - R42) The cause for this is unclear. Her cardiovascular exam today was within normal limits. I have given her 5 mg of lisinopril to lower the blood pressure. 02/28/2025 Depression, unspecified depression type (ICD-10 - F32.9) She continues on the sertraline. She has had no side effects.She wants to taper off the clonazepam and we have begun this process today. 05/03/2025 Tobacco dependence (ICD-10 - F17.200) We have reviewed all of the health consequences of continued smoking. I have recommended smoke [place] and the smoking cessation programs at the local hospitals. She will consider this. I have made her aware of the utility of nicotine patches and Chantix. She will consider these as well. 06/14/2025 Tobacco dependence (ICD-10 - F17.200) We have reviewed all of the health consequences of continued smoking. I have recommended smoke [place] and the smoking cessation programs at the local hospitals. She will consider this. I have made her aware of the utility of nicotine patches and Chantix. She will consider these as well. 01/31/2025 Dizziness (ICD-10 - R42) 09/17/2024 Tobacco dependence (ICD-10 - F17.200) We have reviewed all of the health consequences of continued smoking. I have recommended smoke [place] and the smoking cessation programs at the local hospitals. She will consider this. I have made her aware of the utility of nicotine patches and Chantix. She will consider these as well. 11/24/2024 Tobacco dependence (ICD-10 - F17.200) We have reviewed all of the health consequences of continued smoking. I have recommended smoke [place] and the smoking cessation programs at the local hospitals. She will consider this. I have made her aware of the utility of nicotine patches and Chantix. She will consider these as well. 12/28/2024 Tobacco dependence (ICD-10 - F17.200) We have reviewed all of the health consequences of continued smoking. I have recommended smoke [place] and the smoking cessation programs at the local hospitals. She will consider this. I have made her aware of the utility of nicotine patches and Chantix. She will consider these as well. 01/25/2025 Atypical chest pain (ICD-10 - R07.89) She denies having any chest pain since her last visit. 02/28/2025 Sleep apnea, unspecified type (ICD-10 - G47.30) She denies any daytime somnolence and says she is happy with her current state of affairs. 05/03/2025 Sleep apnea, unspecified type (ICD-10 - G47.30) She denies any daytime somnolence and says she is happy with her current state of affairs. 06/14/2025 Sleep apnea, unspecified type (ICD-10 - G47.30) She denies any daytime somnolence and says she is happy with her current state of affairs. 09/17/2024 Hyperlipidemia, unspecified hyperlipidemia type (ICD-10 - E78.5) Comprehensive blood work is not available but has been ordered. Her lipids have been stable 12/28/2024 Hyperlipidemia, unspecified hyperlipidemia type (ICD-10 - E78.5) She has stopped taking her a atorvastatin stating that she does not wish to take medication. I discussed this with her at length and she persisted in this decision. 01/25/2025 Depression, unspecified depression type (ICD-10 - F32.9) She continues on the sertraline. She has had no side effects. 02/28/2025 Hyperlipidemia, unspecified hyperlipidemia type (ICD-10 - E78.5) She has stopped taking her a atorvastatin stating that she does not wish to take medication. I discussed this with her at length and she persisted in this decision. 05/03/2025 Hyperlipidemia, unspecified hyperlipidemia type (ICD-10 - E78.5) She has stopped taking her a atorvastatin stating that she does not wish to take medication. I discussed this with her at length and she persisted in this decision. 06/14/2025 Hyperlipidemia, unspecified hyperlipidemia type (ICD-10 - [...] restriction today. We discussed lifestyle modifications today. 01/25/2025 Sleep apnea, unspecified type (ICD-10 - G47.30) She denies any daytime somnolence and says she is happy with her current state of affairs. 02/28/2025 Essential hypertension (ICD-10 - I10) She has stopped her lisinopril. I have prescribed Metoprolol succinate 25 mg daily and we'll titrate the dose. 05/03/2025 Essential hypertension (ICD-10 - I10) She has stopped her lisinopril. I have prescribed Metoprolol succinate 25 mg daily and we'll titrate the dose. Her blood pressure is somewhat improved. She will be seen in the near future should has not improved further the metoprolol dose will be increased. 01/25/2025 Tobacco dependence (ICD-10 - F17.200) We have reviewed all of the health consequences of continued smoking. I have recommended smoke [place] and the smoking cessation programs at the local hospitals. She will consider this. I have made her aware of the utility of nicotine patches and Chantix. She will consider these as well. 02/28/2025 Vitamin D deficiency, unspecified (ICD-10 - E55.9) She was continued on vitamin D supplementation. I told her the appropriate dose would be 1000 units of vitamin D3. 01/25/2025 Hyperlipidemia, unspecified hyperlipidemia type (ICD-10 - E78.5) She has stopped taking her a atorvastatin stating that she does not wish to take medication. I discussed this with her at length and she persisted in this decision. Plan Of Treatment Pending Test Test Name Order Date PROFILE, RANDOM (COMPREHENSIVE METABOLIC ) 01/25/2025 CBC w DIFF 01/25/2025 BONE DENSITY DEXA 09/17/2024 ECG holter monitor 48 hour 01/31/2025 ECG 7 day holter monitor 01/25/2025 Next Appt Details Provider Name:Agapito Crane , 08/09/2025 09:30:00 AM, [address] [place] [address] [address], [place], [phone], Provider Name:Agapito Crane , 03/02/2026 10:00:00 AM, [address] [place] [address] [address], [place], [phone], Insurance Providers Payer Name Payer Address Payer Phone Subscriber Number Group Number Insured Name Patient Relationship to Insured Coverage Start Date Coverage End Date [place] [address] [place] [id number] [id number] Self - patient is the insured Medical (General) History Medical History History ICD Code Anxiety F41.9 Herpes zoster without complication B02.9 Trigger finger of left hand, unspecified finger M65.30 Chest pressure R07.89 Sleep apnea, unspecified type G47.30 depression obesity history of herpes zoster trigger finger, third digit left hand postmenopausal tobacco dependence history of Adderall use for impaired con centration {'High Blood Pressure': 'Yes ', 'Obesity': 'Yes', 'Papilloma on right eyelid': 'Yes'} No history Surgical History Surgery Date(Month/Year) No history tonsillectomy tubal ligation 04/1986 Hospitalization History Reason Date(Month/Year) No history
--- OUTSIDE RECORDS SUMMARY | 2025-07-12 12:55 | XMS_ITS | Patient Health Record ---
Author Organization [facility] Address [address] [place] [address] Care Team Providers Care Radio Division Officer Name Role Phone AARON ALBRECHT MD Primary Care Provider Unavailab Hortensia Juarez Unavailable [phone] Allergies No Known Allergies Reason For Referral No Information Medications Medication SIG (Take, Route, Frequency, Duration) Notes Start Date End Date Status Prempro 0.3-1.5 MG 1 tablet Orally Once a day Active Omeprazole 20 MG 1 capsule 30 minutes before morning meal Orally Once a day Active Estradiol Vaginal Cream 0.1% 1 Gram Vaginally & along vulva Twice a week; Duration: 90 days 01/04/2021 Active Estradiol Vaginal Cream 0.01% 1 Gram Vaginally and vulva Twice a week; Duration: 90 days 01/04/2021 Active FLUoxetine HCl 40 MG 1 capsule Orally On ce a day Active clonazePAM 0.5 MG 1 tablet Orally Once a day Active Social History Tobacco Use: Social History Observation Description Date Details (start date - stop date) Current Smoker NA - NA Tobacco Use/Smoking Question Answer Notes Are you a current smoker How often do you smoke cigarettes? every day How many cigarettes a day do you smoke? 6-10 Alcohol Screen (Audit-C) Question Answer Notes Did you have a drink containing alcohol in the p ast year? No Points 0 Interpretation Negative Problems Problem Type SNOMED Code ICD Code Onset Dates Problem Status W/U Status Risk Notes Problem Information temporarily unavailable Postmenopausal atrophic vaginitis (N95.2) Active confirmed Problem Information temporarily unavailable Anxiety disorder, unspecified (F41.9) Active confirmed Problem Information temporarily unavailable Atrophy of vulva (N90.5) Active confirmed Problem Information temporarily unavailable Personal history of cervical dysplasia (Z87.410) Active confirmed Plan Of Treatment Pending Test Test Name Order Date Urinalysis 01/04/2021 MM Digital Mammo Screening 01/04/2021 Medical (General) History Medical History History ICD Code Anxiety disorder, unspecified F41.9 Personal history of cervical dysplasia Z 87.410 Postmenopausal atrophic vaginitis N95.2 Atrophy of vulva N90.5 Surgical History Surgery Date(Month/Year) Ectopic 1981 BTL 1994
== END 2025-07-13 14:44 | disposition home or self-care (01) ==
LOC: HO.HWS 10:49
PROVIDERS: PCP Internal Medicine Medical Oncology; Visit Provider Advanced Practice Midwife
DX: Z01.419 Encounter for gynecological examination (general) (routine) without abnormal findings (principal); Z78.0 Asymptomatic menopausal state; Z12.39 Encounter for other screening for malignant neoplasm of breast; F17.200 Nicotine dependence, unspecified, uncomplicated
CPT/HCPCS: 99386